=== PATIENT | male | born 1965 | race Caucasian/White ===

== ENCOUNTER → 2017-10-03 12:12 | Outpatient (CLI) | payer MEDICARE, MEDICAID, SELFPAY ==
--- NOTE | 2017-10-03 12:20 | RAD_ITS ---
STUDY: X-RAY - NASAL BONES REASON FOR EXAM: Male, 52 years old. Difficulty with nasal breathing. History of prior nasal fracture. TECHNIQUE: AP and lateral view(s) of the nasal bones. COMPARISON: None. FINDINGS: Normal nasal bones. Normal anterior nasal spine. There is no demonstrated soft tissue swelling. The remaining visualized osseous structures are normal. Normal visualized paranasal sinuses. RAD/Nasal Bones min 3 Views IMPRESSION: Normal x-ray examination of the nasal bones. Electronically Signed: Will Jean MD at 12:38 EST Tel [phone], Service support ,
== END ==
PROVIDERS: Family Provider Family Medicine; PCP Family Medicine; Visit Provider Family Medicine
DX: M95.0 Acquired deformity of nose (principal)
CPT/HCPCS: 70160

== ENCOUNTER 2017-10-12 10:34 | Emergency (ER) | payer MEDICARE, MEDICAID, SELFPAY ==
[2017-10-12 10:34] VITALS: BP 103/71; PULSE 86; RESP 17; TEMP 36.9; O2SAT 96; BMI 19.8
--- NOTE | 2017-10-12 10:53 | ED.VISSUMM ---
- ER Visit Summary Date of Service: 10/12/17 Chief Complaint: [Nausea vomiting] History of Present Illness: The patient is a 52 M [who presents the emergency department with 5 weeks of nausea and vomiting. He states that it varies but is proximally 1-2 episodes a day. He states that he has diarrhea when he vomits but not otherwise. He denies cough fever chills or sweats. Triage note is positive for all of these things so I did discuss this discrepancy with him and he states well he had flu symptoms about 3 or 4 weeks ago but those are better. He denies any abdominal pain. He states that he has never had this problem in the past however the review of his records show a history of inflammatory bowel disease. Patient says he knows nothing about this. I did ask him if he had ever been on Lialda which is listed as 1 of his medications and initially he said no but then when I asked him again later on in the interview he said a long time ago. He does have HIV and is on stribild should try build and follows up with an infectious disease doctor in [place]. He had a CD4 count of 547 and an undetectable viral load 2 weeks ago. He has not started on any new medications.] Physical Examination: [] Cachectic unkempt male in no acute distress Cobblestoning of the posterior oropharyngeal mucosa with no erythema or exudate Regular rate and rhythm no murmurs clear To auscultation bilaterally abdomen scaphoid and nontender there are normal bowel sounds and no masses He has mild tenting of the skin peripherally Peripheral pulses scabbed punctate lesions on the upper extremities with no evidence of infection Alert and oriented ?3, facial twitch, no focal neurologic deficits Test Results: [] Emergency Department Course and Treatment: [screening labs consistent with mild hypokalemia and thrombocytopenia. Patient was given fluids. This time I do think he is safe for discharge he was given precautions for which to return. I did encourage him to provide a stool sample. We were unable to obtain this in the emergency department.] Treatment Plan: [] Disposition: [Discharge] Impression: [vomiting] This note was generated with [employer] dictation software. It may contain incorrect words, spelling, and punctuation that were not noted in review of the chart prior to signing ED Disposition - Plan for ED Patient: Disposition: Home or Assisted Living Chief Complaint: General Illness Referrals: Adama Oconnor MD [Primary Care Provider] -
[2017-10-12 11:05] LABS: Absolute Lymphocyte Count 1.23 X10^3/ul (0.83-4.51); Absolute Neutrophil Count 3.4 X10^3/uL (2.0-7.7); Basophil# 0.01 X10^3/uL; Basophil% 0.2 % (0-1); Eosinophil# 0.03 X10^3/uL; Eosinophils% 0.6 % (0-5); Hematocrit 45.6 % (40-54); Hemoglobin 15.6 g/dl (13.0-16.5); Lymphocyte # 1.23 X10^3/ul (4.0); Lymphocyte % 24.4 % (19-41); Mean Corp Hgb Conc 34.2 g/gl (32-36); Mean Corpuscular Hgb 31.9 pg (27.0-32.0); Mean Corpuscular Volume 93.3 fL (80-94); Mean Platelet Vol. 11.7 fl (6.2-12.0); Monocyte# 0.39 X10^3/uL; Monocyte% 7.7 % (0-10); Neutrophil # 3.37 X10^3/uL (2.7-7.7); Neutrophil % 66.9 % (47-70); Platelet Count 147 K/mm3 (150-450); RBC Distribution Width CV 12.5 % (11.6-14.6); RBC Distribution Width SD 42.6 fl (35.1-43.9); Red Blood Count 4.89 M/mm3 (4.6-6.2)
[2017-10-12 11:06] LABS: POSITIVE COUNT NO; POSITIVE DIFFERENTIAL NO; POSITIVE MORPHOLOGY NO
[2017-10-12 11:20] LABS: ALB/GLOB Ratio 1.3 RATIO (0.9-2.4); AST(SGOT) 25 U/L (15-37); Alanine Aminotransfer ALT/SGPT 31 U/L (16-61); Albumin, Serum 3.8 g/dL (3.2-5.0); Alkaline Phosphatase 136 U/L (45-117); Anion Gap 4 (5-15); BUN 5 mg/dL (7-18); BUN/Creat Ratio 4.6 RATIO (10-20); Calcium,Total 8.7 mg/dL (8.5-10.1); Chloride 102 mmol/L (98-107); Creatinine, Serum 1.09 mg/dL (0.70-1.30); EST Glomerular Filtration Rate 76 mL/min (>60); Est Glom Filt Rate - Afr Amer 92 mL/min (>60); Estimated Creatinine Clearance 61.47 ml/min; Glucose 98 mg/dL (74-106); Lipase 56 U/L (73-393); Potassium 3.3 mmol/L (3.5-5.1); Protein, Total 6.8 g/dL (6.4-8.2); Sodium Level 139 mmol/L (136-145)
[2017-10-12] MEDS: 0.9% Normal Saline 1,000 ML 999 ML IV (11:30)
== END 2017-10-12 12:35 | disposition home or self-care (01) ==
LOC: ED 11:02
PROVIDERS: Emergency Provider Emergency Medicine; Family Provider Family Medicine; PCP Family Medicine
DX: R11.2 Nausea with vomiting, unspecified (principal); B20 Human immunodeficiency virus [HIV] disease; K21.9 Gastro-esophageal reflux disease without esophagitis; E78.00 Pure hypercholesterolemia, unspecified; Z79.899 Other long term (current) drug therapy
CPT/HCPCS: 80053; 83690; 85025; 87804; 96361; 96374; 99283; J7030; A4216

== ENCOUNTER → 2017-10-15 07:40 | Outpatient (CLI) | payer MEDICARE, MEDICAID, SELFPAY ==
--- NOTE | 2017-10-15 07:59 | CT_ITS ---
STUDY: CT ABDOMEN AND PELVIS WITH CONTRAST REASON FOR EXAM: Male, 52 years old. Lower abdominal pain with vomiting and diarrhea RADIATION DOSAGE (If Supplied By Facility): CTDIvol = ( 9.11 ) mGy, DLP = ( 228.94 ) mGycm TECHNIQUE: Transaxial images were obtained from the dome of the diaphragm to the symphysis pubis without oral contrast. 100mL ml of Isovue 300 contrast was administered. Sagittal and coronal images were reconstructed. Individualized dose optimization techniques were used for this CT. COMPARISON: June 19, 2016 FINDINGS: The visualized lung bases are unremarkable. The visualized portions of the heart are within normal limits. Normal liver. Normal gallbladder and extrahepatic biliary system. Normal spleen. Normal pancreas. Normal bilateral adrenal glands. Normal right kidney. Normal left kidney. Normal visualized stomach. No evidence for small bowel obstruction. There is narrowing and thick-walled appearance of the distal terminal ileum. There is an a haustral appearance to the splenic flexure and descending colon demonstrating mild diffuse submucosal thickening consistent with nonspecific inflammatory bowel disease without stranding in the fat at this time consistent with subacute to chronic inflammatory bowel disease.. No evidence for acute appendicitis Normal abdominal aorta. Normal inferior vena cava. Normal retroperitoneum. Normal urinary bladder. Normal abdominal wall. Normal osseous structures. CT/Abdomen/Pelvis WITH Contrast IMPRESSION: Findings consistent with nonspecific inflammatory bowel disease involving predominantly the splenic flexure and descending colon consistent with nonspecific colitis however there is suggestion of involvement of the terminal ileum raising question of Crohn's disease. Clinical correlation recommended. Electronically Signed: Wilver Barger MD at 21:24 EST , Service support ,
== END ==
PROVIDERS: Family Provider Family Medicine; PCP Family Medicine; Visit Provider Family Medicine
DX: R11.10 Vomiting, unspecified (principal); R10.9 Unspecified abdominal pain
CPT/HCPCS: 74177; Q9967

== ENCOUNTER 2017-10-18 10:06 | Emergency (ER) | payer MEDICARE, MEDICAID, SELFPAY ==
[2017-10-18 10:07] VITALS: BP 136/94; PULSE 90; RESP 18; TEMP 36.4; O2SAT 98; BMI 20.5
[2017-10-18] MEDS: Ondansetron 4 MG/2 ML Vial IV (10:34)
[2017-10-18 10:37] LABS: Absolute Lymphocyte Count 1.57 X10^3/ul (0.83-4.51); Absolute Neutrophil Count 8.6 X10^3/uL (2.0-7.7); Hemoglobin 16.1 g/dl (13.0-16.5); Lymphocyte # 1.57 X10^3/ul (4.0); Lymphocyte % 14.1 % (19-41); Mean Corpuscular Hgb 31.8 pg (27.0-32.0); Mean Corpuscular Volume 90.7 fL (80-94); Mean Platelet Vol. 12.1 fl (6.2-12.0); Monocyte# 0.94 X10^3/uL; Monocyte% 8.4 % (0-10); Neutrophil # 8.64 X10^3/uL (2.7-7.7); Neutrophil % 77.3 % (47-70); POSITIVE COUNT NO; POSITIVE DIFFERENTIAL NO; POSITIVE MORPHOLOGY NO; Platelet Count 156 K/mm3 (150-450); RBC Distribution Width CV 12.1 % (11.6-14.6); RBC Distribution Width SD 39.6 fl (35.1-43.9); Red Blood Count 5.07 M/mm3 (4.6-6.2); White Blood Count 11.2 K/mm3 (4.4-11.0)
--- NOTE | 2017-10-18 10:37 | ED.DCSUM_ITS ---
- ER Visit Summary Date of Service: 10/18/17 Chief Complaint: Diarrhea History of Present Illness: The patient is a 52 M presents with abdominal pain and diarrhea. Patient is demanding a colonoscopy today. He states he has an appointment with Dr. Brennan on October 31. He states he is unable to wait until his appointment for a colonoscopy. He has had intermittent diarrhea for the past 6 weeks. He denies any blood in his stool. Denies recent travel or antibiotics. He had a CT scan performed ordered by his primary care physician on Friday. He was put on prednisone yesterday for CT findings of inflammation. He denies fever. He has had intermittent episodes of vomiting and diarrhea. He has a history of hypercholesterolemia and HIV. He states recent viral load was undetectable. Physical Examination: Vitals are stable. Patient is afebrile. Alert no acute distress. HEENT exam is unremarkable. Neck is supple. Lungs are clear and equal bilaterally. Heart is regular rate and rhythm. Abdomen is soft mild diffuse tenderness, no rebound or guarding. Extremities are unremarkable. Skin is warm and dry. No focal neurologic deficit. Remainder of exam is unremarkable. Emergency Department Course and Treatment: Patient was given morphine and zofran IV. CBC is a white count 11.2. Chemistries unremarkable other than potassium 3.1. Lipase is normal. He was given potassium oral replacement. CT abdomen pelvis 10/15/17 shows findings consistent with nonspecific inflammatory bowel disease involving predominantly the splenic flexure and descending colon consistent with nonspecific colitis however there is suggestion of involvement of the terminal ileum raising question of Crohn's disease. On reevaluation, patient is resting comfortably. He started prednisone yesterday. He is advised to continue this medication. He has an appointment with GI coming up. He is advised to keep this appointment. Advised return ED if worsening complaints. Disposition: Discharge home Impression: Abdominal pain, diarrhea This note was generated with [employer] dictation software. It may contain incorrect words, spelling, and punctuation that were not noted in review of the chart prior to signing ED Disposition - Plan for ED Patient: Chief Complaint: Abd Pain Referrals: Adama Oconnor MD [Primary Care Provider] -
[2017-10-18 10:56] LABS: ALB/GLOB Ratio 1.4 RATIO (0.9-2.4); AST(SGOT) 22 U/L (15-37); Alanine Aminotransfer ALT/SGPT 36 U/L (16-61); Albumin, Serum 4.2 g/dL (3.2-5.0); Alkaline Phosphatase 132 U/L (45-117); Anion Gap 6 (5-15); BUN 6 mg/dL (7-18); BUN/Creat Ratio 5.9 RATIO (10-20); Calcium,Total 9.4 mg/dL (8.5-10.1); Chloride 99 mmol/L (98-107); Creatinine, Serum 1.02 mg/dL (0.70-1.30); EST Glomerular Filtration Rate 82 mL/min (>60); Est Glom Filt Rate - Afr Amer 99 mL/min (>60); Estimated Creatinine Clearance 65.96 ml/min; Globulin 2.9 g/dL (2.2-4.2); Glucose 112 mg/dL (74-106); Lipase 77 U/L (73-393); Potassium 3.1 mmol/L (3.5-5.1); Protein, Total 7.1 g/dL (6.4-8.2); Sodium Level 137 mmol/L (136-145)
--- NOTE | 2017-10-18 11:19 | ED.DEP ---
ED Disposition - Plan for ED Patient: Chief Complaint: Abd Pain Instructions: ED Abdominal Pain Unkn Cause Referrals: Adama Oconnor MD [Primary Care Provider] - Sudeep Brennan MD [STAFF PHYSICIAN] -
== END 2017-10-18 11:37 | disposition home or self-care (01) ==
LOC: ED 10:34
PROVIDERS: Emergency Provider Emergency Medicine; Family Provider Family Medicine; PCP Family Medicine
DX: R10.84 Generalized abdominal pain (principal); R19.7 Diarrhea, unspecified; E78.00 Pure hypercholesterolemia, unspecified; B20 Human immunodeficiency virus [HIV] disease; Z72.0 Tobacco use; Z79.899 Other long term (current) drug therapy
CPT/HCPCS: 80053; 83690; 85025; 96374; 96375; 99283; A4216; J2405

== ENCOUNTER 2017-10-26 16:24 | Emergency (ER) | payer MEDICARE, MEDICAID, SELFPAY ==
[2017-10-26 16:26] VITALS: BP 140/81; PULSE 83; RESP 16; TEMP 36.4; O2SAT 98; BMI 21.4
--- NOTE | 2017-10-26 17:01 | RAD_ITS ---
STUDY: X-RAY - ABDOMEN/PELVIS REASON FOR EXAM: Male, 52 years old. Constipation x1 week TECHNIQUE: Single AP view of the abdomen / pelvis. COMPARISON: None. FINDINGS: Normal visualized lung bases. There is an abundance of fecal material throughout the colon. There is no demonstrated free abdominal air. The visualized liver, spleen and kidneys are grossly normal in size and morphology. Normal soft tissue structures. Normal visualized osseous structures. RAD/Abdomen Single View (Portable) IMPRESSION: Abundant fecal retention throughout the colon Electronically Signed: Branden Pace DO at 17:31 EST Tel , Service support ,
--- NOTE | 2017-10-26 17:06 | ED.VISSUMM ---
- ER Visit Summary Date of Service: 10/26/17 Chief Complaint: Constipation History of Present Illness: The patient is a 52 M history of HIV positive. No prior abdominal surgeries. He has had multiple recent ER visits including a CAT scan showing colitis without a specific cause. He has follow-up at [facility] this week. Basically states he has not had a good bowel movement for a week. Currently he is not vomiting. He denies any fever. He only has mild intermittent cramping. He denies any dysuria. Currently is pain-free. He denies any melena. Physical Examination: Middle-aged male no acute distress. Vital signs are stable afebrile. HEENT exam unremarkable. Neck nontender no lymphadenopathy. Lungs clear to auscultation bilaterally. Heart regular rate and rhythm no murmur. Abdomen is soft and nontender. Nondistended. Normal bowel sounds. No hernias or masses. No appreciate organomegaly. Nondistended. Absolutely no abdominal tenderness. He is moving all 4 extremities. The neurovascular intact. Back is nontender. Neurologic exam is unremarkable. Test Results: KUB consistent with constipation. No signs of obstruction. No air-fluid levels. No dilated bowel. Emergency Department Course and Treatment: Repeat exam at 725 patient doing well. I went over the x-ray with he and his mother. He will be discharged home with magnesium citrate. Treatment Plan: To treat p.o. Increase water and fruits and vegetables and fiber. Disposition: Discharge Impression: Acute constipation History of HIV positive This note was generated with [employer] dictation software. It may contain incorrect words, spelling, and punctuation that were not noted in review of the chart prior to signing ED Disposition - Plan for ED Patient: Chief Complaint: Constipation Referrals: Adama Oconnor MD [Primary Care Provider] -
--- NOTE | 2017-10-26 17:27 | ED.DEP ---
ED Disposition - Plan for ED Patient: Disposition: Home or Assisted Living Chief Complaint: Constipation Instructions: ED Constipation Referrals: Adama Oconnor MD [Primary Care Provider] - 3-5 Days if not improving Additional Instructions: Use magnesium citrate for constipation. Also increase your fluid intake along with granola, fruits and vegetables and fiber. Follow-up with GI with your previously scheduled appointment this week.
[2017-10-26] MEDS: Magnesium Citrate 300 ML PO (17:39)
[2017-10-26 17:42] VITALS: BP 131/80; PULSE 81; RESP 16; O2SAT 100
== END 2017-10-26 17:45 | disposition home or self-care (01) ==
LOC: ED 17:33
PROVIDERS: Emergency Provider Emergency Medicine; Family Provider Family Medicine; PCP Family Medicine
DX: K59.00 Constipation, unspecified (principal); B20 Human immunodeficiency virus [HIV] disease; I25.10 Atherosclerotic heart disease of native coronary artery without angina pectoris; I25.2 Old myocardial infarction; Z72.0 Tobacco use; Z79.899 Other long term (current) drug therapy
CPT/HCPCS: 74018; 99283

== ENCOUNTER → 2019-01-13 | Outpatient (CLI) | payer MEDICARE, MEDICAID, SELFPAY ==
[2019-01-13 13:38] LABS: Absolute Lymphocyte Count 1.77 X10^3/ul (0.83-4.51); Absolute Neutrophil Count 2.8 X10^3/uL (2.0-7.7); Basophil# 0.02 X10^3/uL; Basophil% 0.4 % (0-1); Eosinophil# 0.05 X10^3/uL; Hematocrit 47.6 % (40-54); Hemoglobin 16.5 g/dl (13.0-16.5); Lymphocyte # 1.77 X10^3/ul (4.0); Lymphocyte % 36.4 % (19-41); Mean Corp Hgb Conc 34.7 g/gl (32-36); Mean Corpuscular Hgb 31.9 pg (27.0-32.0); Mean Corpuscular Volume 92.1 fL (80-94); Mean Platelet Vol. 11.6 fl (6.2-12.0); Monocyte# 0.24 X10^3/uL; Monocyte% 4.9 % (0-10); Neutrophil # 2.78 X10^3/uL (2.7-7.7); Neutrophil % 57.3 % (47-70); Platelet Count 155 K/mm3 (150-450); RBC Distribution Width CV 12.4 % (11.6-14.6); Red Blood Count 5.17 M/mm3 (4.6-6.2); White Blood Count 4.9 K/mm3 (4.4-11.0)
[2019-01-13 13:42] LABS: POSITIVE COUNT NO; POSITIVE DIFFERENTIAL NO; POSITIVE MORPHOLOGY NO
[2019-01-13 14:05] LABS: ALB/GLOB Ratio 1.4 RATIO (0.9-2.4); AST(SGOT) 22 U/L (15-37); Alanine Aminotransfer ALT/SGPT 22 U/L (16-61); Albumin, Serum 4.1 g/dL (3.2-5.0); Alkaline Phosphatase 116 U/L (45-117); Anion Gap 3 (5-15); BUN 8 mg/dL (7-18); BUN/Creat Ratio 6.7 RATIO (10-20); Chloride 103 mmol/L (98-107); EST Glomerular Filtration Rate 67 mL/min (>60); Est Glom Filt Rate - Afr Amer 82 mL/min (>60); Glucose 132 mg/dL (74-106); Potassium 3.4 mmol/L (3.5-5.1); Protein, Total 7.1 g/dL (6.4-8.2); Sodium Level 137 mmol/L (136-145)
[2019-01-14 12:07] LABS: Absolute CD4 Helper 541 /uL (359-1519); Basophils (Absolute) 0 x10E3/uL (0.0-0.2); Eosinophils 2 % (Not Estab.); Eosinophils (Absolute) 0.1 x10E3/uL (0.0-0.4); Hematocrit 48.6 % (37.5-51.0); Hemoglobin 16.6 g/dL (13.0-17.7); Immature Granulocytes 0 % (Not Estab.); Lymphs 34 % (Not Estab.); Lymphs (Absolute) 1.6 x10E3/uL (0.7-3.1); MCH 32.2 pg (26.6-33.0); MCHC 34.2 g/dL (31.5-35.7); MCV 94 fL (79-97); Monocytes 7 % (Not Estab.); Monocytes (Absolute) 0.3 x10E3/uL (0.1-0.9); Neutrophils 56 % (Not Estab.); Neutrophils (Absolute) 2.6 x10E3/uL (1.4-7.0); Percent % CD4 Pos. Lymph. 33.8 % (30.8-58.5); RBC Count 5.16 x10E6/uL (4.14-5.80); WBC Count 4.7 x10E3/uL (3.4-10.8)
[2019-01-14 15:19] LABS: Immature Granulocytes Absolute 0 x10E3/uL (0.0-0.1); Platelets 177 x10E3/uL (150-450)
[2019-01-15 15:50] LABS: HIV-1 RNA by PCR, Quant. < 20 copies/mL (.)
== END | disposition home or self-care (01) ==
PROVIDERS: Family Provider Family Medicine
DX: B20 Human immunodeficiency virus [HIV] disease (principal)
CPT/HCPCS: 36415; 80053; 85025; 86361; 87536

== ENCOUNTER 2019-02-02 12:15 | Emergency (ER) | payer MEDICARE, MEDICAID, SELFPAY ==
[2019-02-02 12:15] VITALS: BP 126/79; PULSE 89; RESP 18; TEMP 36.6; O2SAT 99; BMI 21.9
--- NOTE | 2019-02-02 12:29 | RAD_ITS ---
STUDY: X-RAY - ACUTE ABDOMINAL SERIES REASON FOR EXAM: Male, 53 years old. Abdominal pain TECHNIQUE: Single view of the chest. Supine, and erect view(s) of the abdomen were obtained. COMPARISON: 03/01/2016 FINDINGS: The lungs are clear and expanded. Normal size heart. Normal mediastinum and katina. Normal visualized pulmonary arteries. Normal visualized aortic arch and descending thoracic aorta. There is a non-specific bowel gas pattern. The soft tissue structures of the abdomen and pelvis are unremarkable. Normal visualized osseous structures. RAD/Acute Abdomen Inc Chest IMPRESSION: Normal x-ray examination of the chest, abdomen, and pelvis. Electronically Signed: Bobby Rowell MD at 13:39 EDT Tel , Service support ,
--- NOTE | 2019-02-02 12:33 | ED.DCSUM_ITS ---
History of Present Illness Chief Complaint: Abd Pain Informant: Patient Onset: Days - Onset 3 days ago Context: - - Was not sudden Timing: Intermittent Quality: Crampy Location: Right and left lower quadrant Current Severity: Mild Maximum Severity: Moderate Worsened by: Nothing Relieved by: Nothing Associated Symptoms: No GI or symptoms Narrative: Patient is a middle-age male who has HIV and CD4 count greater than 500 who went to urgent care and referred to ER because unable to obtain images. He reports onset of bilateral lower quadrant abdominal pain 3 days ago that has been intermittent and waxing waning in nature. The pain is crampy in nature. There is no nausea, vomiting or diarrhea. He denies constipation. He has flagellated. No dysuria, frequency, urgency or hematuria. No black, maroon- colored stool or blood in stool. He has had this in the past. When associated with diarrhea diagnosed with colitis. He presently denies diarrhea. Prior similar symptoms: Yes Recent Illness/Hospitalization: No Past Medical History - Allergies and Home Meds Allergies/Adverse Reactions: Allergies quetiapine fumarate [From Seroquel] Adverse Reaction (Verified 10/22/17 09:36) ERECTION THAT LASTS LONGER THAN 4 HOURS Primary Care Physician: Care Physician,No Primary [Primary Care Provider] - Prior records reviewed: Yes Lives: Alone Smoking Status: Current every day smoker Alcohol: None Drugs: None Review of Systems General: Denies: Chills, Fever, Sweats Eyes: Denies: Visual changes - bilaterally, Blurred Vision - bilaterally, Diplopia ENT: Denies: Rhinorrhea, Sore throat Cardiovascular: Denies: Chest pain, Palpitations Respiratory: Denies: Dyspnea, Cough, Dyspnea on exertion Gastrointestinal: Reports: Abdominal pain. Denies: Nausea, Vomiting, Diarrhea, Constipation, Melena, Hematochezia Genitourinary: Denies: Dysuria, Hematuria, Frequency Musculoskeletal: Denies: Back pain, Extremity Pain Skin: Denies: Rash, Wounds Neurological: Denies: Headache, Weakness, Numbness Hematologic: Denies: Easy bruising, Easy bleeding Allergy: Denies: Uticaria, Swelling of the mouth Physical Exam Vital Signs/Narrative: Vital Signs Temp Pulse Resp BP Pulse Ox 02/02/19 12:15 98 F 89 18 126/79 H 99 Inital Vital Signs reviewed: Yes General: Well nourished, Well developed, No Acute Distress Head: Normocephalic, Atraumatic Eyes: Perrl, EOMI ENT: Moist mucous membranes, No rhinorrhea Neck: Supple, Nontender Cardiovascular: Regular rate, Regular rhythm, No murmurs Respiratory: No distress, CTA bilaterally, Chest nontender Abdomen: Soft, Nontender, Nondistended, Normal bowel sounds, No masses, - - Diminished tympanitic to percussion. There is no evidence of umbilical or inguinal hernia. Rectal: Deferred Back: Nontender, Normal Inspection. Negative for: CVA tenderness Extremities: Nontender, No edema Skin: Normal color, No rash Neurological: Alert, Oriented x3, Cranial nerves II-XII grossly intact, Normal Strength, Normal Sensation, Normal DTR Psychological: Depressed Diagnostic/Tx/Re-eval Chest X-Ray - ED: Read by ED Physician, - - Three-view x-ray of the abdomen reveals normal chest portion. The amount of fecal stasis and onset of gas pattern noted on abdominal portion. Is no evidence of obstruction. Impressions Acute Abdomen Series 02/02/19 12:29 IMPRESSION: Normal x-ray examination of the chest, abdomen, and pelvis. Electronically Signed: Bobby Rowell MD at 13:39 EDT Tel , Service support , 02/02/19 12:29 Acute Abdomen Inc Chest [RAD] Stat Laboratory Results 02/02/19 02/02/19 12:54 12:54 WBC 5.4 RBC 5.50 Hgb 17.5 H Hct 50.1 MCV 91.1 MCH 31.8 MCHC 34.9 RDW 12.6 RDW Differential 41.8 Plt Count 160 MPV 11.6 Immature Gran % (Auto) 0.200 Neut % (Auto) 57.7 Lymph % (Auto) 31.3 [place] % (Auto) 9.5 Eos % (Auto) 0.9 Baso % (Auto) 0.4 Absolute Neuts (auto) 3.1 Absolute Lymphs (auto) 1.68 Total Counted Not Reportable Sodium 137 Potassium 3.6 Chloride 103 Carbon Dioxide 32.0 Anion Gap 2 L BUN 8 Creatinine 1.14 Estim Creat Clear Calc 62.25 Est GFR (MDRD) Af Amer 86 Est GFR (MDRD) Non-Af 71 BUN/Creatinine Ratio 7.0 L Glucose 73 L Calcium 9.2 - Medical Decision Making Since abdomen is distended tympanitic and he reports pain will obtain x-ray of his abdomen. In light of his past medical history blood work was obtained as well. Clinically he does not appear dehydrated. Since he is describing the pain is crampy Bentyl was ordered. Will reevaluate after images have been performed and laboratory results are available for review. If nurse informed that he was going to sign out AGAINST MEDICAL ADVICE. I informed the nurse that he cannot sign out AGAINST MEDICAL ADVICE unless I speak to them. I informed her that my plan is to discharge him since his work-up was negative. He left prior to receiving his discharge paperwork. ED Disposition - Plan for ED Patient: Disposition: Home or Assisted Living Diagnosis: Acute bilateral lower abdominal pain, Constipation, HIV antibody positive Instructions: ED Constipation Referrals: Care Physician,No Primary [Primary Care Provider] -
[2019-02-02] MEDS: Dicyclomine 10 MG Capsule 20 MG PO (12:48)
[2019-02-02 13:06] LABS: Absolute Lymphocyte Count 1.68 X10^3/ul (0.83-4.51); Absolute Neutrophil Count 3.1 X10^3/uL (2.0-7.7); Basophil# 0.02 X10^3/uL; Basophil% 0.4 % (0-1); Eosinophil# 0.05 X10^3/uL; Eosinophils% 0.9 % (0-5); Hematocrit 50.1 % (40-54); Hemoglobin 17.5 g/dl (13.0-16.5); Lymphocyte # 1.68 X10^3/ul (4.0); Lymphocyte % 31.3 % (19-41); Mean Corp Hgb Conc 34.9 g/gl (32-36); Mean Corpuscular Hgb 31.8 pg (27.0-32.0); Mean Corpuscular Volume 91.1 fL (80-94); Mean Platelet Vol. 11.6 fl (6.2-12.0); Monocyte# 0.51 X10^3/uL; Monocyte% 9.5 % (0-10); Neutrophil % 57.7 % (47-70); Platelet Count 160 K/mm3 (150-450); RBC Distribution Width CV 12.6 % (11.6-14.6); RBC Distribution Width SD 41.8 fl (35.1-43.9); White Blood Count 5.4 K/mm3 (4.4-11.0)
[2019-02-02 13:09] LABS: POSITIVE COUNT NO; POSITIVE DIFFERENTIAL NO; POSITIVE MORPHOLOGY NO
[2019-02-02 13:16] LABS: Anion Gap 2 (5-15); BUN 8 mg/dL (7-18); Calcium,Total 9.2 mg/dL (8.5-10.1); Chloride 103 mmol/L (98-107); Creatinine, Serum 1.14 mg/dL (0.70-1.30); EST Glomerular Filtration Rate 71 mL/min (>60); Est Glom Filt Rate - Afr Amer 86 mL/min (>60); Estimated Creatinine Clearance 62.25 ml/min; Glucose 73 mg/dL (74-106); Potassium 3.6 mmol/L (3.5-5.1); Sodium Level 137 mmol/L (136-145)
--- NOTE | 2019-02-02 14:40 | ED.RN ---
patient demanded to see ER doctor because he stated he was tired of waiting for results. This RN explained that physician would see patient as soon as possible. Patient demanded to have his IV removed and told RN that he was leaving. RN asked to speak to physician before he leaves. This RN spoke to ed physician who refused to sign AMA paperwork stating that he needed to see patient before he leaves and that his test work was negative. This RN explained to patient that he could leave as we are unable to force him to stay, but he would be unable to receive test results. Patient then left after yelling at nurse.
== END 2019-02-02 15:30 | disposition home or self-care (01) ==
LOC: ED 12:47
PROVIDERS: Emergency Provider Emergency Medicine
DX: R10.32 Left lower quadrant pain (principal); R10.31 Right lower quadrant pain; B20 Human immunodeficiency virus [HIV] disease; F17.200 Nicotine dependence, unspecified, uncomplicated
CPT/HCPCS: 74022; 80048; 85025; 99282

== ENCOUNTER → 2019-02-12 | Outpatient (CLI) | payer MEDICARE, MEDICAID, SELFPAY ==
[2019-02-02 12:15] VITALS: BMI 21.9
--- NOTE | 2019-02-12 09:55 | RAD_ITS ---
CLINICAL HISTORY: Male, 54 years old. PROCEDURE: CONSENT: SEDATION: FLUOROSCOPY TIME (if supplied): (2:51) minutes/seconds TECHNIQUE: (All elements of maximal sterile barrier technique followed, including US elements as applicable) __Patient swallowed barium without difficulty. No evidence of a hiatal hernia or gastroesophageal reflux identified. The stomach was then filled to the normal contour without mucosal abnormalities. The duodenal bulb is is mildly deformed. The duodenal sweep and proximal small bowel are unremarkable. Late abdominal film revealed contrast within the entire small bowel including the cecum and appear normal. RAD/Upper GI Series Only IMPRESSION: Mildly deformed duodenal bulb. Electronically Signed: Myah Coy, at 9:21 EDT Tel , Service support ,
== END | disposition home or self-care (01) ==
LOC: RAD 09:18
PROVIDERS: Referring Provider Nurse Practitioner Adult Health; Visit Provider Nurse Practitioner Adult Health
DX: R10.13 Epigastric pain (principal)
CPT/HCPCS: 74246

== ENCOUNTER 2019-02-13 14:25 | Emergency (ER) | payer MEDICARE, SELFPAY ==
[2019-02-13 14:26] VITALS: BP 129/86; PULSE 104; RESP 18; TEMP 36.4; O2SAT 96; BMI 21.7
--- NOTE | 2019-02-13 15:04 | NURSING ---
FAXED RELEASE OF INFO TO [facility] [phone]
[2019-02-13 15:14] LABS: Absolute Lymphocyte Count 1.95 X10^3/ul (0.83-4.51); Absolute Neutrophil Count 3.3 X10^3/uL (2.0-7.7); Basophil# 0.01 X10^3/uL; Basophil% 0.2 % (0-1); Eosinophil# 0.04 X10^3/uL; Eosinophils% 0.7 % (0-5); Hemoglobin 16.5 g/dl (13.0-16.5); Lymphocyte # 1.95 X10^3/ul (4.0); Lymphocyte % 33.4 % (19-41); Mean Corp Hgb Conc 35.9 g/gl (32-36); Mean Corpuscular Hgb 31.2 pg (27.0-32.0); Mean Platelet Vol. 11.7 fl (6.2-12.0); Monocyte% 8.6 % (0-10); Neutrophil # 3.33 X10^3/uL (2.7-7.7); Neutrophil % 56.9 % (47-70); Platelet Count 156 K/mm3 (150-450); RBC Distribution Width CV 12.1 % (11.6-14.6); RBC Distribution Width SD 38.6 fl (35.1-43.9); Red Blood Count 5.29 M/mm3 (4.6-6.2); White Blood Count 5.8 K/mm3 (4.4-11.0)
[2019-02-13] MEDS: Dicyclomine 10 MG Capsule 20 MG PO (15:14)
[2019-02-13 15:22] LABS: POSITIVE COUNT NO; POSITIVE DIFFERENTIAL NO; POSITIVE MORPHOLOGY NO
[2019-02-13 15:24] LABS: ALB/GLOB Ratio 1.4 RATIO (0.9-2.4); AST(SGOT) 18 U/L (15-37); Alanine Aminotransfer ALT/SGPT 20 U/L (16-61); Albumin, Serum 4.2 g/dL (3.2-5.0); Alkaline Phosphatase 112 U/L (45-117); Anion Gap 4 (5-15); BUN 6 mg/dL (7-18); BUN/Creat Ratio 5.2 RATIO (10-20); Chloride 102 mmol/L (98-107); Creatinine, Serum 1.15 mg/dL (0.70-1.30); EST Glomerular Filtration Rate 71 mL/min (>60); Est Glom Filt Rate - Afr Amer 86 mL/min (>60); Estimated Creatinine Clearance 60.34 ml/min; Globulin 2.9 g/dL (2.2-4.2); Glucose 119 mg/dL (74-106); Potassium 2.8 mmol/L (3.5-5.1); Protein, Total 7.1 g/dL (6.4-8.2); Sodium Level 137 mmol/L (136-145)
[2019-02-13 15:29] LABS: Bacteria 0 SEEN /hpf (None Seen); Mucous, Urine 0 SEEN /hpf (<or=2+); Squamous Epithelial Cells - UA 0 SEEN /hpf (0-5)
[2019-02-13 15:57] LABS: Color, Urine Yellow (Yellow); Glucose, Dipstick Normal (Normal); Ketone-Dipstick Negative (Negative); Leukocyte Esterase-Dipstick Negative /ul (Negative); Nitrite-Dipstick Negative (Negative); Occult Blood-Urine 10 /ul (Negative); Protein-Dipstick Negative (Negative); Urine Bilirubin Dipstick Negative (Negative); Urine Clarity Sl. Cloudy (Clear); Urine Urobilinogen 1 mg/dl (Normal)
--- NOTE | 2019-02-13 16:12 | ED.DCSUM_ITS ---
History of Present Illness Informant: Patient Onset: Month(s) Timing: Waxes and wanes Current Severity: Mild Maximum Severity: Mild Narrative: Patient has a history of chronic abdominal pain. He states it started he thinks in September. He has been seen in the ED and by his GI doctor. His last ED visit was in [place] 1 week ago. He has intermittent nausea and vomiting with intermittent abdominal pain. He is now complaining of urinary frequency without dysuria, he denies fever chills or hematemesis. He does complain of dark stools. He denies weight loss but admits to weight gain.h He had an upper GI series done yesterday. In review of medical records it was unremarkable other than a comment about a deformed duodenal bulb. weight loss but admits to weight gain. Medical records were obtained from [place]. He had a CT abdomen pelvis with IV contrast that showed no acute process. <Lorna Shoemaker - Last Filed: 02/13/19 16:39> <Joseph Walton - Last Filed: 02/13/19 16:45> Chief Complaint: Abd Pain Past Medical History Smoking Status: Current every day smoker <Lorna Shoemaker - Last Filed: 02/13/19 16:39> <Joseph Walton - Last Filed: 02/13/19 16:45> - Allergies and Home Meds Allergies/Adverse Reactions: Allergies quetiapine fumarate [From Seroquel] Adverse Reaction (Verified 02/13/19 14:29) ERECTION THAT LASTS LONGER THAN 4 HOURS Primary Care Physician: Care Physician,No Primary [Primary Care Provider] - Review of Systems General: Denies: Chills, Fever, Sweats Eyes: Denies: Visual changes - bilaterally, Diplopia ENT: Denies: Rhinorrhea, Sore throat Cardiovascular: Denies: Chest pain, Palpitations Respiratory: Denies: Dyspnea, Cough, Dyspnea on exertion Gastrointestinal: Reports: Abdominal pain, Nausea, Vomiting, Hematochezia. Denies: Diarrhea, Melena Genitourinary: Denies: Dysuria, Hematuria, Frequency Musculoskeletal: Denies: Back pain, Extremity Pain Skin: Denies: Rash, Wounds Neurological: Denies: Headache, Weakness, Numbness <Lorna Shoemaker - Last Filed: 02/13/19 16:39> Physical Exam Vital Signs/Narrative: Vital Signs Temp Pulse Resp BP Pulse Ox 02/13/19 14:26 97.6 F L 104 H 18 129/86 H 96 Inital Vital Signs reviewed: Yes General: Well nourished, Well developed, No Acute Distress Head: Normocephalic, Atraumatic Eyes: Perrl, EOMI ENT: Moist mucous membranes, No rhinorrhea Neck: Supple, Nontender Cardiovascular: Regular rate, Regular rhythm, No murmurs Respiratory: No distress, CTA bilaterally, Chest nontender Abdomen: Soft, Nontender, Nondistended, Normal bowel sounds Back: Nontender, Normal Inspection Extremities: Nontender, No edema Skin: Normal color, No rash Neurological: Alert, Oriented x3 Psychological: Normal affect, Normal Mood <Lorna Shoemaker - Last Filed: 02/13/19 16:39> Vital Signs/Narrative: Vital Signs Temp Pulse Resp BP Pulse Ox 02/13/19 16:37 76 16 108/61 95 02/13/19 14:26 97.6 F L 104 H 18 129/86 H 96 <Joseph Walton - Last Filed: 02/13/19 16:45> Diagnostic/Tx/Re-eval - Medical Decision Making Patient has been having abdominal pain for some time. His abdomen was soft and nondistended. He was complaining of diffuse tenderness without guarding or rebound tenderness. Records were obtained from [place] [address] of abdomen pelvis with IV contrast was unremarkable. Laboratory test today were unremarkable as well except for potassium of 2.8. He was prescribed K. Dur and instructed to follow-up with his GI doctor for possible endoscopy, colonoscopy. He is aware of his upper GI report. He remained nontoxic in appearance and hemodynamically stable. He was discharged in stable condition with a prescription for K-Dur. He will continue Prilosec which his GI doctor just increased the dose. He is agreeable to this discharge plan. Differential diagnosis: Peptic ulcer disease, colitis, GI bleed. Patient had no nausea vomiting or reports of hematemesis. Laboratory tests are unremarkable and he was afebrile nontoxic in appearance. He denies gross bleeding but complains of intermittent black stools. He was hemodynamically stable. Final impression: Chronic abdominal pain of uncertain etiology, hypokalemia <Lorna Shoemaker - Last Filed: 02/13/19 16:39> - Medical Decision Making Patient with chronic abdominal pain. He had an upper GI that showed a deformed duodenal bulb. Otherwise unremarkable. His work appears negative except for a potassium of 2.8. He will be given oral replacement for home. He will need to follow-up with the GI specialist. <Joseph Walton - Last Filed: 02/13/19 16:45> ED Disposition <Lorna Shoemaker - Last Filed: 02/13/19 16:39> <Joseph Walton - Last Filed: 02/13/19 16:45> - Plan for ED Patient: Disposition: Home or Assisted Living Diagnosis: Hypokalemia Instructions: ABDOMINAL PAIN, Unkown Cause, (Male) Prescriptions: Potassium Chloride [K-Dur] 20 meq PO BID 5 Days #10 tab Prescription Printed Referrals: Care Physician,No Primary [Primary Care Provider] -
[2019-02-13 16:21] LABS: Red Blood Cells-Urine 0-5 SEEN /hpf (0-5); White Blood Cells 0-5 SEEN /hpf (0-5)
[2019-02-13 16:37] VITALS: BP 108/61; PULSE 76; RESP 16; O2SAT 95
== END 2019-02-13 16:51 | disposition home or self-care (01) ==
PROVIDERS: Emergency Provider Nurse Practitioner
DX: G89.29 Other chronic pain (principal); R10.9 Unspecified abdominal pain; E87.6 Hypokalemia; F17.200 Nicotine dependence, unspecified, uncomplicated
CPT/HCPCS: 80053; 81001; 82274; 85025; 99284; J7040; A4216

== ENCOUNTER 2019-02-14 04:24 | Inpatient (IN) | payer MEDICARE, MEDICAID, SELFPAY ==
[2019-02-13 14:26] VITALS: BMI 21.7
[2019-02-14] VITALS (12 sets, daily range): BP systolic 96–123; BP diastolic 66–89; PULSE 74–89; RESP 14–23; TEMP 36.6–36.7; O2SAT 97–100; BMI 22.1; BMI 22.2
--- NOTE | 2019-02-14 04:33 | RAD_ITS ---
STUDY: X-RAY CHEST REASON FOR EXAM: Male, 54 years old. Chest pain. STEMI. TECHNIQUE: Single AP portable view of the chest. COMPARISON: 02/02/2019. FINDINGS: The lungs are clear and expanded. There is no demonstrated pleural abnormality. Normal size heart. Normal mediastinum and katina. Normal visualized pulmonary arteries. Normal visualized aortic arch and descending thoracic aorta. Normal visualized thoracic spine. Normal visualized ribs, clavicles, and shoulders. There is no demonstrated abnormality of the visualized soft tissue structures of the upper abdomen. RAD/Chest 1 View (Portable) IMPRESSION: Normal x-ray examination of the chest. Electronically Signed: Pankaj Krishna MD at 5:09 EDT , Service support ,
--- NOTE | 2019-02-14 04:33 | EKG12_ITS ---
Test Reason : CP Blood Pressure : / mmHG Vent. Rate : 083 BPM Atrial Rate : 083 BPM P-R Int : 130 ms QRS Dur : 090 ms QT Int : 398 ms P-R-T Axes : 010 038 -25 degrees QTc Int : 467 ms Normal sinus rhythm Cannot rule out Inferior infarct , new Anteroseptal infarct , possibly acute ACUTE MN / STEMI Abnormal ECG Confirmed by GLO DELA CRUZ ([id number]), design editor MATHEUS HARP ([id number]) on 02/17/2019 1:53:11 PM Referred By: Glo Dela Cruz Confirmed By:GLO DELA CRUZ
--- NOTE | 2019-02-14 04:37 | HP.PCM_ITS ---
Problem List (1) STEMI (ST elevation myocardial infarction) Status: Acute History of Present Illness Date of Admission: 02/14/19 Chief Complaint: CHEST PAIN The patient is a 54 year old M with a significant history of hypertension; COPD; and hyperlipidemia who presented to the emergency department with chest pain. Patient was a STEMI alert. His chest pain is across his entire precordium. His pain is sharp. He received aspirin and nitroglycerin by the paramedics. His pain resolved momentarily but it came back. Associated with his symptoms is nausea, vomiting and shortness of breath. He denies any aggravating or ameliorating factor. His pain started while at rest. His pain is nonradiating. His prehospital EKG showed ST elevation in leads I and aVL with reciprocal T wave inversions. At the hospital his EKG showed ST elevation in anterior leads. Of note, patient was seen at the ED a day before this presentation for abdominal pain and was found to have low potassium. Past Medical History Medical History: Medical History (Last Reviewed 02/14/19 @ 04:53 by Reggie Collins MD) Abdominal pain in male R10.9 BAHA cochlear implant bone infection T85.79XA Depression F32.9 Diarrhea R19.7 HIV (human immunodeficiency virus infection) B20 Hypercholesterolemia E78.00 HTN (hypertension) I10 Allergies quetiapine fumarate [From Seroquel] Adverse Reaction (Verified 02/14/19 04:34) ERECTION THAT LASTS LONGER THAN 4 HOURS Home Medications: Ambulatory Orders Medication Instructions Recorded Pravastatin [Pravachol] 40 mg PO DAILY 11/22/15 Gabapentin [Neurontin] 300 mg PO BIDCM PRN 06/13/16 Omeprazole [Prilosec] 20 mg PO DAILY 06/13/16 Potassium Chloride [K-Dur] 20 meq PO BID 5 Days #10 tab 02/13/19 Surgical History: Surgical History (Last Reviewed 02/14/19 @ 04:53 by Reggie Collins MD) H/O colonoscopy Z98.890 H/O eye surgery Z98.890 H/O toe surgery Z98.890 Smoking Status: Current every day smoker Review of Systems Constitutional: Denies: Chills, Fever, Weight Change HEENT: Denies: Head Aches, Sinus Congestion, Sinus Drainage Cardiovascular: Reports: Chest Pain Respiratory: Reports: Shortness of Breath Gastrointestinal: Reports: Nausea, Vomiting Genitourinary: Denies: Dysuria Musculoskeletal: Denies: Joint Pain, Joint Tenderness Skin: Denies: Rash, Wounds Neurological: Denies: Numbness, Tingling, Focal weakness Psychiatric: Denies: Homicidal Ideations, Suicidal Ideations Hematologic/ Lymphatic: Denies: Easy Bruising, Easy Bleeding VTE Information - Inpt Only VTE Present on Admission: No VTE Mechan Device Prophylaxis: None VTE Pharm Prophylaxis ordered?: No Reason prophylaxis not ordered:: Treatment Not Indicated - Patient received therapeutic dose of heparin for STEMI Patient Problems: Active and Suspected Problems (Last Reviewed 02/14/19 @ 04:53 by Reggie Collins MD) STEMI (ST elevation myocardial infarction) (Acute) - Physical Exam General: Alert, Oriented x3, Cooperative HEENT: Atraumatic, Normocephalic Neck: Supple, No JVD, Negative Carotid Bruits Lungs: Clear to auscultation, Normal air movement, Tachypneic, Using Accessory Muscles Cardiovascular: Regular rate, No murmurs Abdomen: Bowel Sounds Present, Soft, Non Tender Extremities: No edema, Capillary Refill Less than 3 Seconds Skin: No rashes, No breakdown Musculoskeletal: No Tenderness to Palpation of Joints or Extremities Neurological: Neuro grossly intact Psych/Mental Status: Anxious Vital Signs Temp Pulse Resp BP Pulse Ox 98.1 F 89 19 H 120/73 99 02/14/19 04:25 02/14/19 04:25 02/14/19 04:25 02/14/19 04:25 02/14/19 04:25 Oxygen Delivery Method Room Air Weight: 58.6 kg Body Mass Index (BMI) 22.1 Assessment/Plan All Active Problems (Last Reviewed 02/14/19 @ 04:53 by Reggie Collins MD) STEMI (ST elevation myocardial infarction) (Acute) The patient is a 54 year old M with a significant history of hypertension; and hyperlipidemia who presented to the emergency department with symptomatic ST elevation PR for which a STEMI alert was called. ST elevation PR Review of EKG confirms ST elevation Emergency orders placed by the emergency department doctor. Patient to be sent to the Ground Intelligence Officer. Patient received therapeutic dose of heparin per weight , Brilinta; morphine; aspirin and nitroglycerin at the ED. Of note emergency department nurse reported that patient vomited after he had received Brilinta. Tobacco abuse Consider counseling after patient has returned from [facility] [employer] [facility]. DVT Prophylaxis Not indicated at this time since patient has received therapeutic dose of heparin. Further management after patient has returned from [facility] [employer] [facility]. Code Visit Inpatient E&M: 11510 Init Hosp L3
[2019-02-14] MEDS: TICAGRELOR 90 MG TABLET 180 MG PO (04:38)
[2019-02-14] MEDS: Heparin Injection (Vial) 5,000 UNIT/ML VIAL 3520 UNIT IV (04:39)
--- NOTE | 2019-02-14 04:40 | ED.DCSUM_ITS ---
- ER Visit Summary Date of Service: 02/14/19 Chief Complaint: Chest pain History of Present Illness: The patient is a 54 M who presents with sudden onset severe chest pain that began about 20 minutes ago. He describes it as a tightness in the center of his chest. He has associated shortness of breath. EMS gave aspirin and nitroglycerin. He transiently had resolution of his symptoms. Multiple prehospital EKGs were sent which initially showed ST elevation in leads I and aVL nonspecific changes with T wave inversions and ST depression in the inferior leads. At this evolved he also developed ST depression in the precordial leads. He denies any history of coronary disease. He is a smoker with a history of high cholesterol and COPD. Physical Examination: Afebrile vitals normal Moist mucous membranes Heart regular rate and rhythm Lungs are clear The abdomen is soft and nontender Extremities are nontender without edema symmetric palpable radial pulses Alert Test Results: EKG shows ST elevations in leads I, aVL, V2 and V3 which are new from prior as well as deep ST depression and T wave inversions in the inferior leads, II, III, and aVF. Laboratory studies including troponin have been ordered Emergency Department Course and Treatment: STEMI team was activated based on prehospital EKGs. IV morphine and Zofran, IV heparin, sublingual nitroglycerin have been ordered. He already received aspirin. He was consented for emergent catheterization and angioplasty. I did not speak directly to the staining investor relations director but was advised that investor relations director is on his way in. Treatment Plan: [] Disposition: To School Speech Therapist Impression: Anterolateral STEMI This note was generated with Penboost dictation software. It may contain incorrect words, spelling, and punctuation that were not noted in review of the chart prior to signing ED Disposition - Plan for ED Patient: Referrals: Care Physician,No Primary [Primary Care Provider] -
[2019-02-14] MEDS: Nitroglycerin SL (ED/IMG/CATH) 0.4 MG TABLET SUBLINGUAL (04:41)
[2019-02-14] MEDS: Ondansetron 4 MG/2 ML Vial IV (04:41)
[2019-02-14 04:42] LABS: Absolute Lymphocyte Count 3.12 X10^3/ul (0.83-4.51); Absolute Neutrophil Count 2.8 X10^3/uL (2.0-7.7); Basophil# 0.02 X10^3/uL; Basophil% 0.3 % (0-1); Eosinophils% 1.5 % (0-5); Hematocrit 45.2 % (40-54); Lymphocyte # 3.12 X10^3/ul (4.0); Lymphocyte % 45.9 % (19-41); Mean Corp Hgb Conc 33.2 g/gl (32-36); Mean Corpuscular Hgb 29.4 pg (27.0-32.0); Mean Corpuscular Volume 88.5 fL (80-94); Mean Platelet Vol. 11.8 fl (6.2-12.0); Monocyte% 10.3 % (0-10); Neutrophil # 2.84 X10^3/uL (2.7-7.7); Neutrophil % 41.9 % (47-70); Platelet Count 169 K/mm3 (150-450); RBC Distribution Width CV 12.5 % (11.6-14.6); RBC Distribution Width SD 40.6 fl (35.1-43.9); Red Blood Count 5.11 M/mm3 (4.6-6.2); White Blood Count 6.8 K/mm3 (4.4-11.0)
[2019-02-14] MEDS: Morphine 4 MG/ML Syringe IV (04:42)
[2019-02-14 04:43] LABS: POSITIVE COUNT NO; POSITIVE DIFFERENTIAL NO; POSITIVE MORPHOLOGY NO
[2019-02-14 04:48] LABS: Partial Thromboplast Time 27.5 Seconds (24.1-36.2); Prothrombin Time (Protime)PT. 12.5 SECONDS (11.7-14.9)
[2019-02-14 04:56] LABS: Anion Gap 9 (5-15); BUN 8 mg/dL (7-18); BUN/Creat Ratio 7.2 RATIO (10-20); Calcium,Total 8.7 mg/dL (8.5-10.1); Chloride 105 mmol/L (98-107); Creatinine, Serum 1.11 mg/dL (0.70-1.30); EST Glomerular Filtration Rate 74 mL/min (>60); Est Glom Filt Rate - Afr Amer 89 mL/min (>60); Estimated Creatinine Clearance 63.79 ml/min; Glucose 116 mg/dL (74-106); Potassium 3.3 mmol/L (3.5-5.1); Sodium Level 143 mmol/L (136-145)
--- NOTE | 2019-02-14 06:02 | CL.I_ITS ---
Patient Name: KIMBERLY BRANHAM Study Date: 02/14/2019 Performing: Stas Lawrence MD Ht: 64.17 inches 163 cm : 1965 Wt: 130.07 lbs 59 kg Age: 54 Gender: male BSA: 1.63 PROCEDURE(S) PERFORMED OE97-TSC/COR/LV OU81-ZSF, LAVELL AND/OR PTCA, ARTERY OR GRAFT, SINGLE VESSEL CLINICAL PROFILE AND CO-MORBIDITIES Indications: ACS <= 24 hrs Heart Failure: None Stress/Imaging Stress/Image Study Performed: No CAD Presentations: STEMI. Symptom onset Date/Time: Time Not Available CONCLUSIONS Acute GA due to occlusion of LAD Single vessel CAD of the LAD Successful PTCA/LAVELL mid LAD Successful emergent PCI with Drug eluting stent and PTCA to the mid LAD RECOMMENDATIONS Referred for immediate PCI [facility]fin[facility] Bardales for at least 12 months DESCRIPTION OF PROCEDURE The patient arrived to the procedure lab. The risks and benefits of the procedure as well as a full d escription of our services here and lack of surgical backup were fully explained to the patient and/o r their significant other prior to the catheterization. The Timeout was completed, verifying the rome ect patient and procedure. The patient's procedural site was prepped and draped in the usual fashion. Local anesthetic was given subcutaneously to right radial region with Lidocaine 2%. Using a modified Seldinger technique, arterial access was obtained via the right radial artery, a 6Fr sheath was inse rted.. Left Coronary Artery selective angiography was performed in multiple views using a 6 Fr. JL3. 5. Left Ventriculography was performed in DIAZ projection using a 5 Fr. JR5. LV to AO pullback pressur es were then recorded. Right Coronary Artery selective angiography was then performed in multiple vie ws using a 5 Fr. JR 5 catheter JL 3.5 Guide catheter was inserted and engaged into the LCA. BMW Eugene Guide wire was advance d to the Runthrough Guide wire was advanced to the LAD. Emerge 2.0 x 12 Balloon catheter was inserted . Balloon catheter was advanced across lesion in the LAD, mid. PTCA balloon inflated at 8 atms for 42 secs. Angiogram performed post balloon dilatation. Resolute 2.5 x 8 Drug Eluting stent was inserted. Drug Eluting stent was advanced across the lesion in the LAD, mid. Angiogram performed pre stent dep loyment. Angiogram performed post stent deployment. The arterial sheath was pulled and a TR Band wa s applied for hemostasis CORONARY ANGIOGRAPHY DOMINANCE: Right Dominant LEFT HEART ASSESSMENT Left Ventricular Ejection Fraction: by LV Gram 35 % Depressed Left Ventricular systolic function Anterior Akinesis. Apical Akinesis LEFT MAIN: Angiographically normal LEFT ANTERIOR DESCENDING ARTERY: MID LAD: 90 % Stenosis RIGHT CORONARY ARTERY: Angiographically normal VALVE FINDINGS: No Mitral Insufficency INTERVENTION INFORMATION LESION SITE: LAD (Mid) Lesion Complexity: Non-High/Non-C, lesion at bifurcation: Yes, culprit lesion: Yes Pre-Stenosis - 90 % Pre Stenosis: 90 % Pre intervention FOZIA flow: 2 PROCEDURE: Drug Eluting Stent with pre and post dilatation Post Stenosis: 0 % Post intervention FOZIA flow: 3 Lesion Devices: Yusuf Sci .035 260cm str. Magic wire Driscoll .014 BMW Eugene Straight 190cm Medtronic 6 Fr JL3.5 100cm Guide Catheter Terumo .014 Runthrough Extra Floppy 180cm straight Yusuf Sci EMERGE MR 2.00x12 BALLOON Medtronic Resolute RX LAEVLL 2.5x18 COMPLICATIONS No Complications PROCEDURE MEDICATIONS Versed 1 mg IV Fentanyl 50 mcg IV Oxygen: 2 L/min via nasal cannula Brilinta 180 mg PO @ 02/14/2019 05:29:19 Heparin given IA 02/14/2019 05:16:10 Heparin 3000 unit(s) IV 02/14/2019 05:21:26 Verapamil 3mg, Ntg 300mcgs, 3000 units of Heparin given IA 02/14/2019 05:16:10 IV Bolus: .9 NaCl 600 ml total 02/14/2019 05:29:35 SUMMARY OF HEMODYNAMIC DATA Time AIR REST ECG 05:11:50 AO 101/68 (80) SA 05:22:28 LV 109/16, 25 05:39:28 LV 97/12, 23 05:39:34 LVp 112/17, 33 05:40:33 AOp 113/57 (84) 05:40:38 Signed By Stas Lawrence MD On 02/14/2019 6:01:46 AM Stas Lawrence MD
--- NOTE | 2019-02-14 06:09 | NURSING ---
Patient arrived from dairy laboratory technician to ICU [address] with [address] band in [address], no hematoma noted. Patient moving right arm and using it frequently.Patient educated that the right arm should not be used and to pretend that he does not have a right arm. Patient stated I am right handed and I am stubborn. I will use my right arm as much as I want to. Explained to patient that he had a puncture to his major artery in his right arm and using it can cause a hematoma and possible fatal complications. Patient states he wants his discharge paperwork and is stated I am leaving AMA and won't be here long. 2 other nurses attempted to educate patient and he continues to use his right arm and stating he is leaving AMA and will continue to use his right arm.
[2019-02-14 06:16] LABS: ACT Activated Clotting Time 362 sec (74-137)
--- NOTE | 2019-02-14 06:19 | PCM.CONS.C ---
Problem List (1) STEMI (ST elevation myocardial infarction) Status: Acute Qualifiers: Involved coronary artery: LAD coronary artery Qualified Code(s): I21.02 - ST elevation (STEMI) myocardial infarction involving left anterior descending coronary artery Reason for Consult Date of Consultation: 02/14/19 Reason for Consultation: STEMI History of Present Illness: The patient is a 54 year old male with history of tobacco abuse, COPD, hyperlipidemia, who presented to the hospital with sudden onset of retrosternal chest heaviness that started about an hour prior to his arrival to the emergency room. Initial ECG revealed subtle ST elevation in leads I and aVL with reciprocal changes in leads II, III and aVF. Subsequent EKGs revealed ST elevation in the anterior leads and code STEMI was activated. Emergent heart catheterization was performed, which found a 90% tubular lesion affecting the mid LAD. This was revascularized using a drug-eluting stent. The symptoms subsided and the patient did well during the procedure. His LV function showed an EF of 35%. The day before he presented to our emergency room with abdominal pain. He has had chronic recurrent abdominal pains for the past 4 to 6 months. His work-up was negative. He tells me that he was in [place] the day before and had the same symptoms and went to [facility]. He tells me that a CT scan of his abdomen was performed, and that was negative. [] Past Medical History Allergies/Adverse Reactions: Allergies quetiapine fumarate [From Seroquel] Adverse Reaction (Verified 02/14/19 04:34) ERECTION THAT LASTS LONGER THAN 4 HOURS Home Medications: Ambulatory Orders Medication Instructions Recorded Pravastatin [Pravachol] 40 mg PO DAILY 11/22/15 Gabapentin [Neurontin] 300 mg PO BIDCM PRN 06/13/16 Omeprazole [Prilosec] 40 mg PO DAILY 06/13/16 Potassium Chloride [K-Dur] 20 meq PO BID 5 Days #10 tab 02/13/19 Elviteg/Fifi/Emtric/Tenofo Ala 1 tab PO DAILY 02/14/19 [Genvoya Tablet] Smoking Status: Current every day smoker Review of Systems - Review of Systems General: Denies: Fever, Night Sweats, Fatigue Cardiovascular: Denies: Chest Discomfort, Shortness of Breath, Orthopnea, PND, Peripheral Edema, Palpitations, Lightheadedness, Dizziness, Near Syncope, Syncope Respiratory: Denies: Cough, Sputum Production, Hemoptysis Gastrointestinal: Denies: Hematemesis, Hematochezia, Melena Genitourinary: Denies: Dysuria, Hematuria Skin: Denies: Rash Objective: Vital Signs Temp Pulse Resp BP Pulse Ox 98.1 F 87 19 H 123/89 H 97 02/14/19 04:25 02/14/19 05:29 02/14/19 05:29 02/14/19 05:29 02/14/19 05:29 Oxygen Flow Rate (L/min) 2 Oxygen Delivery Method Nasal Cannula Weight: 129 lb 6.581 oz Body Mass Index (BMI) 22.1 General: Awake, Alert, Oriented x 3 HEENT: PERRL, EOMI, Sclera Non Icteric Neck: Supple, Good ROM, No Lymph Node Enlargement Lungs: Clear to auscultation Cardiovascular: Regular Rhythm, Normal S1, Normal S2, No Murmurs, No Rubs, No Gallops Abdomen: Bowel Sounds Present, Soft, Non Tender, Non Distended Extremities: No Cyanosis, No Clubbing, No edema Musculoskeletal: No Erythema Skin: No Rashes Lymphatic: No Lymph Node Enlargement Neurological: No Focal Motor or Sensory Deficit Psych/Mental Status: Appropriate 02/14/19 04:34: WBC 6.8, RBC 5.11, Hgb 15.0, Hct 45.2, MCV 88.5, MCH 29.4, MCHC 33.2, RDW 12.5, RDW Differential 40.6, Plt Count 169, MPV 11.8, Immature Gran % (Auto) 0.100, Neut % (Auto) 41.9 L, Lymph % (Auto) 45.9 H, [place] % (Auto) 10.3 H, Eos % (Auto) 1.5, Baso % (Auto) 0.3, Absolute Neuts (auto) 2.8, Total Counted Not Reportable 02/14/19 04:34: PT 12.5, INR 1.0, APTT 27.5 02/14/19 04:34: Sodium 143, Potassium 3.3 L, Chloride 105, Carbon Dioxide 29.0, Anion Gap 9, BUN 8, Creatinine 1.11, Est GFR (MDRD) Af Amer 89, Est GFR (MDRD) Non-Af 74, BUN/Creatinine Ratio 7.2 L, Glucose 116 H, Calcium 8.7, Troponin I 0.030 Rhythm: EKG: ECHO: Stress Test: Cardiac Cath: PCI: CT Surgery: Holter monitor: EPS: PPM: CXR: Chest CT Scan: Assessment/Plan Impression: 1. Acute anterior ST elevation TN due to severe mid LAD stenosis status post successful PCI using a 2.5 x 18 mm drug-eluting stent. 2. Moderate to severe LV systolic dysfunction. 3. Dyslipidemia 4. Chronic tobacco abuse/COPD 5. Recurrent abdominal pains Plan: 1. dual antiplatelet therapy with aspirin and Brilinta. 2. Assess LV systolic function with a 2D echocardiogram tomorrow. 3. Add low-dose beta-praful therapy. 4. statin therapy, atorvastatin 40 mg daily, to replace pravastatin
--- NOTE | 2019-02-14 07:01 | NURSING ---
at 0645 patient noted to have hematoma approximately 6cm above TR band. Small amount of oozing from puncture site under TR band noted as well. Manual pressure held over radial artery for 15 minutes. No further oozing or bleeding noted. site above TR band is now soft. Patient educated once again on not moving his right arm and not using his right arm. Patient stated that he is leaving AMA as soon as possible and did not acknowledge attempt to educate.
[2019-02-14] MEDS: Carvedilol 3.125 MG TABLET PO (08:09)
[2019-02-14] MEDS: Pantoprazole Sodium 40 MG Tablet PO (08:09)
[2019-02-14] MEDS: TICAGRELOR 90 MG TABLET PO (08:09)
[2019-02-14] MEDS: Aspirin 81 MG TAB.CHEW PO (08:09)
--- NOTE | 2019-02-14 08:17 | NURSING ---
Pt stated he plans to leave as soon as the TR band is removed. He stated he has thieves in his house and he needs to get home. He denied wanting to notify the police. He denied the need for a nicotine patch and stated he will resume smoking as soon as he leaves here. He is non compliant about wearing the psychologist experimental when ambulating to the bathroom. Education about Brillinta, aspirin, diltiazem shared with patient. He stated he plan to take his medicine as prescribed. He refused a cardiac low cholesterol diet, regular diet ordered.
--- NOTE | 2019-02-14 08:26 | NURSING ---
Pt screamed into the hallway, lets get going. I observed pt removing monitoring devices and then he began to pull his TR band off. Pt stated he is leaving against medical advice. Educations provided about pt needing prescriptions but he stated he does not care and that this hospital sucks. Dr. Chow informed.
--- NOTE | 2019-02-14 09:29 | NURSING ---
Called Patients home number and left a message with his sister that his prescriptions where called into [facility]. She stated she would give him the message
--- NOTE | 2019-02-14 14:48 | PCM.DC.SUM ---
Discharge Date and Diagnosis Date of Admission: 02/14/19 Date of Discharge: 02/14/19 - Primary Discharge Diagnosis Acute ST elevation [place], status post PTCA/LAVELL to mid LAD Hospital Course and Treatment Imaging Results: 02/14/19 06:28 Echo Complete [ECHO] Routine Clinical Impression(s) from Imaging Studies Chest X-Ray 02/14/19 04:33 IMPRESSION: Normal x-ray examination of the chest. Electronically Signed: Pankaj Krishna MD at 5:09 EDT , Service support , Dr. Lawrence, cardiology. Procedures: Cardiac catheterization, EKG Summary of Care Provided: Patient left AGAINST MEDICAL ADVICE before I see him and I did not have a chance to examine him. Nursing staff has been working very hard overnight to have him stay in the hospital after he had stent placed. He was informed that he has to be on Brilinta for at least one year to avoid thrombosis or clotting of his stent. This morning, patient insisted to go home and he left the ICU with a cigarette in his mouth. The patient is a 54 year old M presented to the emergency room because of chest pain and he was found to have acute anterior ST elevation AZ, underwent emergent cardiac catheterization, found to have single-vessel CAD of the left anterior descending artery, underwent emergent PCI with placement of drug-eluting stent to mid LAD. He was started on aspirin, beta-blockers, Brilinta and statins. His routine blood work was unremarkable. His vital signs were stable. Today, patient decided to leave AGAINST MEDICAL ADVICE. He was informed multiple times that he has to be on Brilinta for at least 12 months to avoid complications but he just woke out of the ICU and he was smoking cigarettes upon leaving. Patient left the hospital AGAINST MEDICAL ADVICE and he was not evaluated by a physician on the day he left the hospital. After patient left, I sent electronic prescriptions to his [facility] pharmacy and prescriptions were for aspirin 81 mg p.o. daily, Lipitor 40 mg p.o. daily, Brilinta 90 mg p.o. twice daily and Coreg 3.125 mg p.o. twice daily. ICU nurse called the patient told him know that we sent prescriptions to his pharmacy. - Physical Exam Vital Signs Temp Pulse Resp BP Pulse Ox 98 F 82 15 122/83 H 100 02/14/19 08:00 02/14/19 08:00 02/14/19 08:00 02/14/19 08:00 02/14/19 08:00 Oxygen Flow Rate (L/min) 2 Oxygen Delivery Method Room Air Weight: 129 lb 6.581 oz Body Mass Index (BMI) 22.1 Laboratory Tests Past 24 Hrs 02/14/19 02/14/19 02/14/19 04:34 04:34 04:34 WBC 6.8 RBC 5.11 Hgb 15.0 Hct 45.2 MCV 88.5 MCH 29.4 MCHC 33.2 RDW 12.5 RDW Differential 40.6 Plt Count 169 MPV 11.8 Immature Gran % (Auto) 0.100 Neut % (Auto) 41.9 L Lymph % (Auto) 45.9 H [place] % (Auto) 10.3 H Eos % (Auto) 1.5 Baso % (Auto) 0.3 Absolute Neuts (auto) 2.8 Absolute Lymphs (auto) 3.12 Total Counted Not Reportable PT 12.5 INR 1.0 APTT 27.5 Activated Clotting Time Sodium 143 Potassium 3.3 L Chloride 105 Carbon Dioxide 29.0 Anion Gap 9 BUN 8 Creatinine 1.11 Estim Creat Clear Calc 63.79 Est GFR (MDRD) Af Amer 89 Est GFR (MDRD) Non-Af 74 BUN/Creatinine Ratio 7.2 L Glucose 116 H Calcium 8.7 Troponin I 0.030 02/14/19 05:36 WBC RBC Hgb Hct MCV MCH MCHC RDW RDW Differential Plt Count MPV Immature Gran % (Auto) Neut % (Auto) Lymph % (Auto) [place] % (Auto) Eos % (Auto) Baso % (Auto) Absolute Neuts (auto) Absolute Lymphs (auto) Total Counted PT INR APTT Activated Clotting Time 362 H Sodium Potassium Chloride Carbon Dioxide Anion Gap BUN Creatinine Estim Creat Clear Calc Est GFR (MDRD) Af Amer Est GFR (MDRD) Non-Af BUN/Creatinine Ratio Glucose Calcium Troponin I Home Medications: Medications to take at Discharge Pravastatin [Pravachol] 40 mg PO DAILY 11/22/15 Gabapentin [Neurontin] 300 mg PO BIDCM PRN 06/13/16 Omeprazole [Prilosec] 40 mg PO DAILY 06/13/16 Potassium Chloride [K-Dur] 20 meq PO BID 5 Days #10 tab 02/13/19 Aspirin 81 mg PO DAILY #90 tab.chew 02/14/19 Atorvastatin Calcium [Lipitor] 40 mg PO QHS #90 tab 02/14/19 Carvedilol [Coreg] 3.125 mg PO BID #90 tab 02/14/19 Elviteg/Fifi/Emtric/Tenofo Ala [Genvoya Tablet] 1 tab PO DAILY 02/14/19 Ticagrelor [Brilinta] 90 mg PO BID #90 tab 02/14/19 Following Prescrptions Were Given to Patient: Aspirin 81 mg PO DAILY #90 tab.chew Transmission Status: Received by [facility] [id number] Ticagrelor [Brilinta] 90 mg PO BID #90 tab Transmission Status: Received by [facility] [id number] Carvedilol [Coreg] 3.125 mg PO BID #90 tab Transmission Status: Received by [facility] [place] [facility] [id number] Atorvastatin Calcium [Lipitor] 40 mg PO QHS #90 tab Transmission Status: Received by [facility] [facility] [place] [id number] Primary Care Physician: Care Physician,No Primary [Primary Care Provider] - Disposition: Against Medical Advice Minutes spent on discharge:: 25 Patient Condition:: Stable Medical Necessity - Tobacco Use Smoking Status: Current every day smoker Meaningful Use Info Meaningful Use Diagnoses (Choose all that apply): None applicable Code Visit Inpatient E&M: 40405 Disch Hosp
--- NOTE | 2019-02-15 09:16 | CRPHASE1_ITS ---
Patient Communication PHII Cardiac Rehab Discussed with Patient:: No Guide to Cardiac Rehab Given to Patient:: No Cardiac Rehab Facility Choice List Given to Patient:: No Choice Program [facility] PHII:: Communication Given to CR, Refer to [facility] Secretarial Stenographer:: Shay Barragan PCP:: NO PRIMARY Refer Phase II Cardiac Rehab:: No - PATIENT LEFT ICU AGAINST MEDICAL ADVICE Choice Letter Given to Patient:: No - Patient left the ICU against medical advice smoking Guide to Cardiac Rehab Given by ICU Staff Prior to Discharge: No Guide to Cardiac Rehab Mailed to Patient by CR Staff:: No Patient Contacted Post Discharge by CR Staff:: No Risk Factors/Lifestyle Family History: Family History (Last Updated 10/22/17 @ 09:34 by Vangie Patel) Mother Asthma Diabetes Hypertension CVA (cerebral vascular accident) Cardiac Rehabilitation Info Cardiac Rehabilitation Program Information: Cardiac Rehabilitation is important for patients like you who are recovering from a heart problem. Cardiac rehabilitation programs are recognized as integral to the continued care of the patient with coronary heart disease. The cardiac rehabilitation program is designed to optimize a patient's physical, psychological, and social functioning. Health career education teacher work in cardiac rehabilitation programs and assist you with getting the treatments you need to get stronger and healthier - like exercise, healthy eating habits, and medications. Cardiac rehabilitation has been show to help people with heart problems live longer and have better life enjoyment than people who do not go to cardiac rehabilitation. Please contact the Cardiac Rehabilitation Program at [facility] at in two weeks if you have not heard from them. Patient left the ICU against medical advice, with a cigarette in his mouth as he walked out of the ICU unit. The patient had not been evaluated by a physician prior to leaving [facility] on the day he left the hospital. The ICU nursing staff had been working hard overnight to keep the patient in the hospital after he had the stent placed. The morning the patient walked out against medical advice or being seen by a physician. The patient's presciptions were sent to his retail pharmacy ([facility]). ICU nurse called the patient and told him that his presciptions were sent to his pharmacy.
--- NOTE | 2019-02-15 09:26 | CRPH1.INSTRU ---
General Education CAD and cardiac anatomy and function:: Not instructed Explanation of diagnoses and procedures:: Not instructed Sign/Symptoms of MA:: Not instructed Antiplatelet therapy: Not instructed Emergency procedures and activation of EMS: Not instructed Compliance of all prescribed medications: Not instructed - Patient left ICU Against Medical Advice or being seen by a physician.
== END 2019-02-14 08:30 | disposition left against medical advice (07) | DRG 247 ==
LOC: ED 04:31 → ICU 05:01
PROVIDERS: Admitting Provider Hospitalist; Emergency Provider Emergency Medicine; Referring Provider Internal Medicine Cardiovascular Disease; Visit Provider Hospitalist
DX: I21.09 ST elevation (STEMI) myocardial infarction involving other coronary artery of anterior wall (principal); B20 Human immunodeficiency virus [HIV] disease; J44.9 Chronic obstructive pulmonary disease, unspecified; E78.00 Pure hypercholesterolemia, unspecified; I10 Essential (primary) hypertension; G89.29 Other chronic pain; R10.13 Epigastric pain; E87.6 Hypokalemia; Z79.899 Other long term (current) drug therapy; I25.10 Atherosclerotic heart disease of native coronary artery without angina pectoris; F17.210 Nicotine dependence, cigarettes, uncomplicated
CPT/HCPCS: 71045; 74246; 80048; 80053; 81001; 82274; 84484; 85025; 85347; 85610; 85730; 92941; 93005; 93458; 99152; 99153; 99284; 99285; J7030; J7040; Q9967; A4216; C1725; C1769; C1874; C1887; C1894; C9606; J1327; J2405

== ENCOUNTER 2020-08-17 07:31 | Emergency (ER) | payer MEDICARE, MEDICAID, SELFPAY ==
[2019-02-14 06:15] VITALS: BMI 22.1
[2020-08-17 07:33] VITALS: BP 147/90; PULSE 88; RESP 18; TEMP 36.6; O2SAT 100; BMI 20.5
--- NOTE | 2020-08-17 07:42 | ED.VIS.GEN ---
History of Present Illness Chief Complaint: Complaint Detail of Chief Complaint: Dysuria and penile discharge x2 to 3 days Onset: Days - 2 to 3 days Context: Sudden Onset Timing: Continuous Quality: Dysuria and thick yellow penile discharge Location: Urethral discharge Current Severity: Mild Maximum Severity: Moderate Worsened by: New sexual encounter Relieved by: Nothing Associated Symptoms: No constitutional symptoms Narrative: Patient is a 55-year-old male with history of psychiatric disorders who presents with dysuria and penile discharge that started 2 to 3 days ago. He had unprotected sexual course with a new person the last 6 months. He reports history of STI and believes he had gonorrhea. He denies fever, chills night sweats. He denies photophobia or neck pain. He denies arthralgias or joint swelling. He denies rash. He denies testicular or scrotal pain. He denies swelling of his testicles or scrotum. He denies any penile lesions. He denies GI symptoms. Prior similar symptoms: Yes Recent Illness/Hospitalization: No - Past Medical History (1) Ischemic cardiomyopathy Status: Acute (2) Essential (primary) hypertension Status: Chronic (3) Hyperlipidemia Status: Chronic Past Medical History - Allergies and Home Meds Allergies/Adverse Reactions: Allergies amitriptyline Allergy (Verified 08/17/20 07:33) Swelling trazodone Allergy (Verified 08/17/20 07:33) Swelling quetiapine fumarate [From Seroquel] Adverse Reaction (Verified 08/17/20 07:32) ERECTION THAT LASTS LONGER THAN 4 HOURS Primary Care Physician: Care Physician,No Primary [Primary Care Provider] - Prior records reviewed: Yes Surgical History: - - Cardiac catheterization with deployment of stents Smoking Status: Current every day smoker Alcohol: Rare Drugs: None Review of Systems General: Denies: Chills, Fever, Malaise, Subjective, Sweats, Weight loss Eyes: Denies: Visual changes - bilaterally, Blurred Vision - bilaterally ENT: Denies: Rhinorrhea, Sore throat Cardiovascular: Denies: Chest pain, Palpitations Gastrointestinal: Denies: Abdominal pain, Nausea, Vomiting Musculoskeletal: Denies: Myalgias, Arthralgias, Back pain, Swelling, Extremity Pain Skin: Denies: Rash, Wounds Neurological: Denies: Headache Hematologic: Denies: Easy bruising, Easy bleeding Physical Exam Vital Signs/Narrative: Vital Signs Temp Pulse Resp BP Pulse Ox 12/24/20 07:33 97.9 F 88 18 147/90 H 100 Inital Vital Signs reviewed: Yes General: Well nourished, Well developed, Unkempt Head: Normocephalic, Atraumatic Eyes: Perrl, EOMI, - - Conjunctive is not injected.. Negative for: Pale conjunctiva, Scleral icterus Neck: Supple, Nontender Cardiovascular: Regular rate, Regular rhythm, No murmurs, Normal S1, Normal S2 Respiratory: No distress, CTA bilaterally, Chest nontender : - - Circumcised male with hypospadias. No penile lesions noted. There is a thick green urethral discharge noted. Testes are descended bilaterally with no testicular or epididymal tenderness. There is no swelling of the testicles or scrotum. There is no inguinal lymphadenopathy. There are no lesion Extremities: Nontender, No edema Skin: Normal color, No rash Neurological: Alert, Oriented x3, Cranial nerves II-XII grossly intact, Normal Strength, Normal Sensation Psychological: - - Affect is flat Diagnostic/Tx/Re-eval - Medical Decision Making She presents with urethritis. In light of new sexual partner and urethral drainage suspect patient has gonorrhea. He may have a concomitant chlamydial infection. He was treated with Rocephin and azithromycin. Since he has no systemic symptoms no laboratory tests were obtained. ED Disposition - Plan for ED Patient: Disposition: Home or Assisted Living Diagnosis: Urethritis Instructions: ED STI Male Treated Referrals: Care Physician,No Primary [Primary Care Provider] - Deepthi Guevara [NON-STAFF] - As Needed
[2020-08-17] MEDS: Azithromycin 250 MG Tablet 1000 MG PO (08:07)
[2020-08-17] MEDS: Ceftriaxone 500 MG Vial 250 MG IM (08:08)
[2020-08-17 10:04] LABS: Chlamydia Trachomatis by PCR Negative (Negative); Neisserai gonorrhoeae by PCR Positive (Negative); Probe Check PASS
== END 2020-08-17 08:13 | disposition home or self-care (01) ==
LOC: ED 08:04
PROVIDERS: Emergency Provider Emergency Medicine
DX: N34.2 Other urethritis (principal); I10 Essential (primary) hypertension; E78.5 Hyperlipidemia, unspecified; F17.200 Nicotine dependence, unspecified, uncomplicated
CPT/HCPCS: 87491; 87591; 96372; 99283

== ENCOUNTER → 2021-01-04 09:57 | Outpatient (CLI) | payer MEDICARE, MEDICAID, SELFPAY ==
--- NOTE | 2021-01-04 10:02 | RAD_ITS ---
STUDY: X-RAY - LUMBAR SPINE REASON FOR EXAM: Male, 55 years old. BACK PAIN TECHNIQUE: 3 view(s) of the lumbar spine were obtained. COMPARISON: None FINDINGS: Normal lumbar lordosis. There is no substantial scoliosis. There is a normal alignment of the vertebrae. Normal vertebral bodies and endplates. Normal disc space heights. The soft tissue structures are unremarkable. RAD/Lumbar Spine 2 or 3 Views IMPRESSION: Normal x-ray examination of the lumbar spine. Electronically Signed: Will Jean MD at 12:31 EDT , Service support ,
== END ==
PROVIDERS: PCP Internal Medicine; Referring Provider Anesthesiology Pain Medicine; Visit Provider Anesthesiology Pain Medicine
DX: M54.5 Low back pain (principal)
CPT/HCPCS: 72100

== ENCOUNTER → 2021-02-15 13:29 | Outpatient (CLI) | payer MEDICARE, MEDICAID, SELFPAY ==
[2021-02-15 17:57] LABS: Amphetamine Urine VISTA NEGATIVE (<1000 ng/mL); Barbiturate Urine VISTA NEGATIVE (< 200 ng/mL); Benzodiazepine Urine VISTA NEGATIVE (< 200 ng/mL); Cocaine Urine VISTA NEGATIVE (< 300 ng/mL); Ecstacy Urine VISTA NEGATIVE (< 500 ng/mL); Methadone Urine VISTA NEGATIVE (< 300 ng/mL); PCP Urine VISTA NEGATIVE (< 25 ng/mL); THC Urine VISTA NEGATIVE (< 50 ng/mL); Vista UDS pH Range 6
== END ==
PROVIDERS: PCP Internal Medicine; Referring Provider Anesthesiology Pain Medicine; Visit Provider Anesthesiology Pain Medicine
DX: F11.20 Opioid dependence, uncomplicated (principal)
CPT/HCPCS: 80307

== ENCOUNTER → 2023-05-29 | Outpatient (CLI) | payer MEDICARE, MEDICAID, SELFPAY ==
--- NOTE | 2023-05-29 12:47 | ECHOD_ITS ---
Reason For Study: ANGINA PECTORIS Procedure This was a 2D Doppler, Color Flow transthoracic echocardiogram. Left Ventricle Normal size and thickness. Apical false tendon noted. The left ventricular ejection fraction is 50 %. Mild posterior hypokinesis. Right Ventricle Normal right ventricle. Atria The left and right atria are normal. Mitral Valve Mild-Moderate (1-2+) eccentric mitral valve insufficiency. Tricuspid Valve Trivial tricuspid valve insufficiency. Normal pulmonary artery pressure. Aortic Valve Trisinus/trileaflet aortic valve. Moderate (2+) aortic valve insufficiency. Pulmonic Valve The pulmonic valve is not well visualized. Great Vessels The aortic root is not well visualized. Pericardium/Pleural No pericardial effusion. MMode/2D Measurements & Calculations LVIDd: 4.8 cm IVSd: 0.82 cm LVOT diam: 2.0 cm LVIDs: 3.1 cm LVPWd: 0.82 cm LVOT area: 3.0 cm2 RVDd: 2.9 cm FS: 35.4 % Ao root diam: 2.9 cm LAV(MOD-bp): 41.4 ml LVAd ap4: 30.6 cm2 LAV(MOD-bp) Indexed: 25.6 ml/m2 LVLd ap4: 7.6 cm LAV(MOD-sp2): 40.7 ml EDV(MOD-sp4): 101.8 ml LAV(MOD-sp4): 41.1 ml EDV(sp4-el): 104.9 ml LVAs ap4: 19.8 cm2 LVLs ap4: 6.7 cm ESV(MOD-sp4): 48.3 ml ESV(sp4-el): 50.0 ml EF(MOD-sp4): 52.5 % EF(sp4-el): 52.3 % LVAd ap2: 30.8 cm2 SV(MOD-sp4): 53.5 ml SV(MOD-sp2): 58.3 ml LVLd ap2: 7.6 cm EDV(MOD-sp2): 103.3 ml EDV(sp2-el): 105.3 ml LVAs ap2: 18.4 cm2 LVLs ap2: 6.1 cm ESV(MOD-sp2): 45.1 ml ESV(sp2-el): 47.1 ml EF(MOD-sp2): 56.4 % SV(sp4-el): 54.9 ml LA dimension(2D): 3.1 cm LA A4 area: 15.2 cm2 RA A4 area: 12.3 cm2 Time Measurements MV dec time: 0.26 sec Doppler Measurements & Calculations MV E max jerson: 74.5 cm/sec Lat Peak E' Jerson: 12.3 cm/sec Med Peak E' Jerson: 12.3 cm/sec MV A max jerson: 99.6 cm/sec E/E' lat: 6.1 E/E' med: 6.1 MV E/A: 0.75 Ao V2 max: 135.2 cm/sec AI max jerson: 409.0 cm/sec MV dec slope: 290.4 cm/sec2 Ao max P.3 mmHg AI max P.0 mmHg Ao V2 mean: 91.3 cm/sec Ao mean P.9 mmHg AI dec slope: 236.0 cm/sec2 Ao V2 VTI: 31.5 cm AI P1/2t: 507.6 msec AV (velocity ratio): 0.82 TYSON(I,D): 2.5 cm2 TYSON(V,D): 2.4 cm2 LV V1 max: 108.3 cm/sec MR max jerson: 455.5 cm/sec SV(LVOT): 77.3 ml LV V1 max P.7 mmHg MR max P.0 mmHg LV V1 mean P.4 mmHg MR mean jerson: 363.0 cm/sec LV V1 mean: 71.9 cm/sec MR mean P.5 mmHg LV V1 VTI: 25.7 cm MR VTI: 150.9 cm PA V2 max: 91.5 cm/sec TR max jerson: 222.6 cm/sec PA V2 mean: 64.5 cm/sec TR max P.8 mmHg ECHO/Echo Complete Interpretation Summary The left ventricular ejection fraction is 50 %. Mild posterior hypokinesis Moderate (2+) aortic valve insufficiency. Mild-Moderate (1-2+) eccentric mitral valve insufficiency. Ordering Physician: Gavin Alexander Referring Physician: Lindsey Cisneros Performed By: Maris Arteaga, DENIS, RVT
== END | disposition home or self-care (01) ==
LOC: CVS 12:47
PROVIDERS: PCP Internal Medicine; Referring Provider Internal Medicine Cardiovascular Disease; Visit Provider Internal Medicine Cardiovascular Disease
DX: I25.119 Atherosclerotic heart disease of native coronary artery with unspecified angina pectoris (principal); I34.0 Nonrheumatic mitral (valve) insufficiency; I35.1 Nonrheumatic aortic (valve) insufficiency
CPT/HCPCS: 93306

== ENCOUNTER 2023-06-17 09:03 | Day surgery (SDC) | payer MEDICARE, MEDICAID, SELFPAY ==
[2023-06-03 08:18] LABS: Hemoglobin 16.1 g/dL (13.0-16.5); Mean Corp Hgb Conc 34.3 g/dL (32-36); Mean Corpuscular Hgb 32.1 pg (27.0-32.0); Mean Corpuscular Volume 93.6 fL (80-94); Mean Platelet Vol. 11.5 fl (6.2-12.0); Platelet Count 193 K/mm3 (150-450); RBC Distribution Width CV 12.7 % (11.6-14.6); RBC Distribution Width SD 43.7 fl (35.1-43.9); Red Blood Count 5.02 M/mm3 (4.6-6.2); White Blood Count 5.5 K/mm3 (4.4-11.0)
--- NOTE | 2023-06-03 08:25 | RAD_ITS ---
INDICATION: COPD, for heart cath -- for heart cath EXAMINATION/TECHNIQUE: X-RAY - XR Chest 2 Views COMPARISON: Prior study dated: 02/14/2019 FINDINGS: LINES/DEVICES: None. LUNGS: The lungs are well expanded. No consolidation, edema or effusion. No pneumothorax. MEDIASTINUM AND CARDIOVASCULAR STRUCTURES: Cardiac silhouette not enlarged. Central airways and mediastinal contour are unremarkable. BONES AND SOFT TISSUES: Unremarkable. RAD/Chest PA and Lateral IMPRESSION: No acute pulmonary finding. Electronically Signed: Ben Avery MD at 12:26 EDT ,
[2023-06-03 08:31] LABS: Prothrombin Time (Protime)PT. 13.5 SECONDS (11.7-14.9)
[2023-06-03 08:57] LABS: Anion Gap 0 (5-15); BUN 9 mg/dL (7-18); BUN/Creat Ratio 6.8 RATIO (10-20); Calcium,Total 8.8 mg/dL (8.5-10.1); Chloride 102 mmol/L (98-107); Creatinine, Serum 1.33 mg/dL (0.70-1.30); EST Glomerular Filtration Rate 59 mL/min (>60); Est Glom Filt Rate - Afr Amer 71 mL/min (>60); Glucose 94 mg/dL (74-106); Potassium 3.6 mmol/L (3.5-5.1); Sodium Level 135 mmol/L (136-145)
--- NOTE | 2023-06-10 17:41 | HP.PCM_ITS ---
History and Physical Date of Admission: 06/17/23 This gentleman has past medical history significant for coronary artery disease status post anterior LA in 2019. He had coronary angiography done and had a drug-eluting stent placed to his proximal LAD. Patient never followed up in the office then. Per patient, he has had further interventions done at different hospitals. His last coronary angiography and intervention was in June of last year according to him. Patient also has history of bipolar disorder, HIV, emphysema, dyslipidemia and hypertension. According to the patient, for the last year or so he has been having anterior chest tightness with exertion. No rest symptoms. According to him, he also gets short of breath with exertion. No orthopnea. No PND. No ankle edema. Patient's records show that a transesophageal echocardiogram done in November of this year showed severe mitral regurgitation with moderate aortic valve regurgitation. According to the patient, he was advised surgery but he got scared. Repeat echo in 05/2023 demonstrated EF of 5% with posterior hypokensis and Moderate AI, Mild to moderate LA. He is here today to undergo a heart cath for further evaluation. Medications albuterol sulfate 90 mcg/actuation aerosol inhaler 2 puff inhalation Q4H PRN 05/12/23 [History Confirmed 05/14/23] aripiprazole 10 mg tablet 15 mg PO DAILY 05/12/23 [History Confirmed 05/14/23] atorvastatin 20 mg tablet 40 mg PO DAILY 05/12/23 [History Confirmed 05/14/23] bictegravir 50 mg-emtricitabine 200 mg-tenofovir alafenam 25 mg tablet (Biktarvy) 1 tab PO DAILY 05/12/23 [History Confirmed 05/14/23] clopidogrel 75 mg tablet 75 mg PO DAILY 05/12/23 [History Confirmed 05/14/23] gabapentin 800 mg tablet 800 mg PO TID 05/12/23 [History Confirmed 05/14/23] nitroglycerin 0.4 mg sublingual tablet (Nitrostat) 0.4 mg sublingual Q5M PRN 05/12/23 [History Confirmed 05/14/23] aspirin 81 mg capsule 81 mg PO DAILY 05/14/23 [History Confirmed 05/14/23] lisinopril 10 mg tablet 10 mg PO DAILY 05/14/23 [History Confirmed 05/14/23] metoprolol succinate 25 mg tablet,extended release 24 hr 25 mg PO DAILY 05/14/23 [History Confirmed 05/14/23] PFSH Medical History (Updated 05/14/23 @ 10:[address] aGvin Alexander MD) Abdominal pain in male Aortic insufficiency Atherosclerotic heart disease of cahto coronary artery without angina pectoris BAHA cochlear implant bone infection Bipolar 2 disorder Blepharospasm COPD (chronic obstructive pulmonary disease) Depression Diarrhea Essential (primary) hypertension Hearing loss History of DVT (deep vein thrombosis) History of ST elevation myocardial infarction (STEMI) (02/14/19) HIV (human immunodeficiency virus infection) Hyperlipidemia Ischemic cardiomyopathy Mitral regurgitation Orofacial dyskinesia Pulmonary embolism Schizophrenia Surgical History H/O colonoscopy H/O eye surgery H/O toe surgery History of coronary artery stent placement (02/14/19) Family History Mother Asthma Diabetes Hypertension CVA (cerebral vascular accident) COPD (chronic obstructive pulmonary disease) HyperlipidemiaGrandmother Hypertension Myocardial infarctionGrandfather Myocardial infarction Social History (Updated 05/14/23 @ 09:41 by Ailin Velazco, RN) Smoking Status: Current every day smoker tobacco type: cigarettes alcohol intake: never caffeine: Yes Type: carbonated beverages Number of servings: 4, coffee Number of servings: 3 and tea ROS Const Const: Positive for fatigue (several years, worsening); Negative for weakness ENT ENT: Negative for dizziness or balance problems Cardio Chest Pain: Yes Frequency: weekly Character: sharp Onset: exercise Location: left chest Duration: brief Exacerbation: activity Palpitations: No Edema: None Muscle aches with walking: None Resp Respiratory: Positive for SOB with activity (several years, worsening); Negative for SOB at rest or SOB orthopnea\SOB lying down GI GI: Positive for nausea (intermittently, more prominent in the morning); Negative vomiting or heartburn Musc Musc: Negative for muscle weakness or balance problems Neuro Neuro: Negative for dizziness, lightheadedness, near syncope, syncope or we akness Endo Endo: Positive for fatigue (several years, worsening) Cardiology Exam Const Appearance: comfortable and no acute distress Nutritional Appearance: well nourished Neck Neck: no JVD Carotids: Negative bruit Chest Auscultation: Bilateral: Clear to Auscultation Cardio Rate: regular rate Rhythm: regular rhythm Heart sounds: S1 normal and S2 normal 2/6 systolic murmur at apex Neuro General: patient alert, patient awake and patient oriented x3 Extremities Lower Extremity Edema: None: Bilateral Supplemental Info Supplemental Information Transesophageal Echocardiogram (12/03/22) Luis M Aly: Summary 1. Left ventricle: Systolic function is normal. The estimated ejection fraction is 55%. 2. Aortic valve: There is no evidence of vegetation. There is moderate regurgitation. 3. Mitral valve: There is no evidence of vegetation. There is severe regurgitation. 4. Left atrium: There is no evidence of thrombus in the atrial cavity or appendage. 5. Pulmonic valve: There is no evidence of vegetation. 6. Tricuspid valve: There is no evidence of vegetation. 7. Right atrium: There is no evidence of thrombus in the atrial cavity or appe ndage. 8. Atrial septum: No defect or patent foremen ovale is identified. Echo contrast study following an increase in RA pressure induced by provocative maneuvers, shows no [id number] atrial level shunt. Left Heart Cath 03/14/22 ([facility]): -The left main is short in length with a normal caliber. -The LAD is moderate sized vessel with two diagonal branches. There is a previously placed stent in the proximal LAD which is free of stenosis. There is a 30% stenosis of the LAD in the mid/distal LAD. -The LCx is a large sized vessel with two significant obtuse marginal branches. The vessel is widely patent. -The right coronary artery is widely patent. -Left dominant coronary arterial circulation -The LVEDP is normal at 12mmHg -There is no gradient on LV-Ao pullback. Coronary Angiography 08/05/22 ([facility]): Impression Severe single vessel CAD Successful angioplasty and successful (drug-eluding) stenting of the 60-70% in stent restenosis in the proximal to mid left anterior descending artery. Successful (drug-eluding) stenting of the 70-80% stenosis in the mid left anterior descending artery Successful angioplasty and successful (drug-eluding) stenting of the 70-80% stenosis in the proximal left anterior descending artery Successful angioplasty of the 90-99% stenosis in the proximal first diagonal artery. The SYNTAX score was 15, indicating that percutaneous coronary intervention is most appropriate. Coronary Angiography 10/17/20 ([facility]): Impression Severe single vessel CAD 30-40% in-stent restenosis in the proximal to mid left anterior descending artery Left ventriculogram not done due to patient having recent echo Pharmacological Stress Test 05/26/20 ([facility] [place]): Interpretation Summary The LV EF is calculated at 62% Small apical artifact No ischemia Low Risk Study Left Heart Cath 02/28/2019 ([facility]): -Left ventricular ejection fraction was 50-55%. There was no transaortic gradient. -Left main coronary artery was small to medium. There were luminal irregularities in the left main coronary artery. -The pre-existing stent in the mid left anterior descending artery had less than 10% in-stent restenosis from the proximal to distal portion. There was a 40-50% tubular stenosis in the mid left anterior descending artery. FFR was utilized to evaluate the significance of the stenosis in the left anterior descending artery. -The circumflex artery gave rise to two obtuse marginal arteries. There were luminal irregularities in the left circumflex artery. -There were luminal irregularities in the right coronary artery. Cardiac Cath 02/14/19 ([facility]): CONCLUSIONS Acute LA due to occlusion of LAD Single vessel CAD of the LAD Successful PTCA/LAVELL mid LAD Successful emergent PCI with Drug eluting stent and PTCA to the mid LAD Labs: Assessment & Plan Assessment/Plan (1) Aortic insufficiency: (2) Mitral regurgitation: (3) Essential (primary) hypertension: (4) Atherosclerotic heart disease of cahto coronary artery without angina pectoris: (5) Ischemic cardiomyopathy: (6) History of coronary artery stent placement: PLAN: Plan Pt will undergo a diagnostic heart cath to further assess. Follow up will be based on findings.
--- NOTE | 2023-06-17 12:28 | CL.D_ITS ---
Patient Name: KIMBERLY BRANHAM Study Date: 06/17/2023 Performing: Gavin Alexander MD Ht: 64 inches 162.56 cm : 1965 Wt: 128 lbs 58.06 kg Age: 58 Gender: male BSA: 1.62 PROCEDURE(S) PERFORMED DC01-(47724)LHC/COR/LV DC11-([id number])AO ROOT ANGIO WITH HEART CATH CLINICAL PROFILE AND INDICATIONS Indications: Stable Known CAD Heart Failure: None CAD Presentations: Symptom unlikely to be ischemic. CONCLUSIONS 30% ISR LAD LVEF 55% Mild MR/AR RECOMMENDATIONS Medical therapy DESCRIPTION OF PROCEDURE The patient arrived to the procedure lab. The risks and benefits of the procedure as well as a full description of our services here and current unavailability of surgical backup were fully explained to the patient and/or their significant other prior to the catheterization. The Timeout was completed, verifying the correct patient and procedure. The patient's procedural site was prepped and draped in the usual fashion. Local anesthetic was given subcutaneously to right radial region with Lidocaine 2%. Using a modified Seldinger technique, arterial access was obtained via the right radial artery, a 6Fr sheath was inserted. Left Coronary Artery selective angiography was performed in multiple views using a 5 Fr. 4.0 [place] catheter. Right Coronary Artery selective angiography was then performed in multiple views using a 5 Fr. 4.0 [place] catheter. Left Ventriculography was performed in DIAZ projection using a 5 Fr. Pigtail catheter. LV to AO pullback pressures were then recorded. aortic root was applied for hemostasis-9cc air CORONARY ANGIOGRAPHY DOMINANCE: Right Dominant LEFT HEART ASSESSMENT Left Ventricular Ejection Fraction: by LV Gram 55 % LVEDP: 10 mmHg LEFT MAIN: Angiographically normal LEFT ANTERIOR DESCENDING ARTERY: 30% ISR Mid LAD DIAGONAL 1: Tubular 50% Ostial lesion in 1st Diagonal CIRCUMFLEX ARTERY: CIRCUMFLEX: Luminal Irregularities 10% Proximal lesion in Circumflex RIGHT CORONARY ARTERY: Angiographically normal VALVE FINDINGS: Aortic Valve Insufficiency: Grade 2 Mild MR COMPLICATIONS No Complications PROCEDURE MEDICATIONS Fentanyl 50 mcg IV Versed 1 mg IV Oxygen: 2 L/min via nasal cannula Heparin given IA 06/17/2023 11:20:24 Verapamil 2.5mg, Ntg 200mcgs, 2000 units of Heparin given IA 06/17/2023 11:20:24 IV Fluids: .9 NaCl 250cc recieved throughout procedure 06/17/2023 11:33:59 SUMMARY OF HEMODYNAMIC DATA Time AIR REST ECG 09:20:22 AO 77/45 (60) SA 11:23:17 LV 97/-3, 10 11:27:42 LV 98/-4, 12 11:27:51 LV 75/11, 16 11:29:05 LVp 91/-5, 13 11:31:00 AOp 91/49 (68) 11:31:07 AO 110/19 (67) 11:32:27 Signed By Gavin Alexander MD On 06/17/2023 12:27:29 Gavin Alexander MD
== END 2023-06-17 13:30 | disposition home or self-care (01) ==
LOC: CLSP 09:04
PROVIDERS: PCP Internal Medicine; Referring Provider Internal Medicine Cardiovascular Disease; Visit Provider Internal Medicine Cardiovascular Disease
DX: I08.0 Rheumatic disorders of both mitral and aortic valves (principal); J43.9 Emphysema, unspecified; B20 Human immunodeficiency virus [HIV] disease; I25.10 Atherosclerotic heart disease of native coronary artery without angina pectoris; Z95.5 Presence of coronary angioplasty implant and graft; I10 Essential (primary) hypertension; E78.5 Hyperlipidemia, unspecified; I25.2 Old myocardial infarction; F17.210 Nicotine dependence, cigarettes, uncomplicated; I25.5 Ischemic cardiomyopathy
CPT/HCPCS: 36415; 71046; 80048; 85027; 85610; 85730; 93458; 99152; 99153; J7040; Q9967; C1769; C1894

== ENCOUNTER 2023-07-23 15:06 | Outpatient (CLI) | payer MEDICARE, MEDICAID, SELFPAY ==
[2023-07-23 16:09] LABS: Absolute Lymphocyte Count 1.85 X10^3/uL (0.83-4.51); Absolute Neutrophil Count 4.7 X10^3/uL (2.0-7.7); Basophil# 0.04 X10^3/uL; Basophil% 0.5 % (0-1); Eosinophil# 0.06 X10^3/uL; Eosinophils% 0.8 % (0-5); Hematocrit 44.5 % (40-54); Lymphocyte # 1.85 X10^3/ul (0.83-4.51); Lymphocyte % 25.2 % (19-41); Mean Corp Hgb Conc 33.7 g/dL (32-36); Mean Corpuscular Hgb 31.3 pg (27.0-32.0); Mean Corpuscular Volume 92.7 fL (80-94); Mean Platelet Vol. 12.4 fl (6.2-12.0); Monocyte# 0.62 X10^3/uL; Monocyte% 8.5 % (0-10); NRBC Flagged by Analyzer 0 % (0-5); Neutrophil # 4.74 X10^3/uL (2.7-7.7); Neutrophil % 64.7 % (47-70); Platelet Count 172 K/mm3 (150-450); RBC Distribution Width CV 12.2 % (11.6-14.6); RBC Distribution Width SD 42.1 fl (35.1-43.9); White Blood Count 7.3 K/mm3 (4.4-11.0)
[2023-07-23 16:31] LABS: ALB/GLOB Ratio 1.5 RATIO (0.9-2.4); AST(SGOT) 19 U/L (15-37); Alanine Aminotransfer ALT/SGPT 23 U/L (16-61); Albumin, Serum 4.1 g/dL (3.2-5.0); Alkaline Phosphatase 120 U/L (45-117); Anion Gap 6 (5-15); BUN 11 mg/dL (7-18); BUN/Creat Ratio 8.9 RATIO (10-20); Calcium,Total 8.6 mg/dL (8.5-10.1); Chloride 104 mmol/L (98-107); Cholesterol 104 mg/dL (200); Creatinine, Serum 1.24 mg/dL (0.70-1.30); EST Glomerular Filtration Rate 64 mL/min (>60); Est Glom Filt Rate - Afr Amer 77 mL/min (>60); Globulin 2.8 g/dL (2.2-4.2); Glucose 79 mg/dL (74-106); Potassium 3.5 mmol/L (3.5-5.1); Protein, Total 6.9 g/dL (6.4-8.2); Sodium Level 139 mmol/L (136-145); Triglycerides 103 mg/dL
[2023-07-23 16:44] LABS: Syphilis Antibodies Non-reactive
[2023-07-25 16:09] LABS: Absolute CD4 Helper 675 /uL (359-1519); Basophils (Absolute) 0 x10E3/uL (0.0-0.2); CD4/CD8 Ratio 0.89 (0.92-3.72); Eosinophils 1 % (Not Estab.); Eosinophils (Absolute) 0.1 x10E3/uL (0.0-0.4); Hematocrit 47.2 % (37.5-51.0); Hemoglobin 16.1 g/dL (13.0-17.7); Immature Granulocytes 0 % (Not Estab.); Immature Granulocytes Absolute 0 x10E3/uL (0.0-0.1); Lymphs 26 % (Not Estab.); Lymphs (Absolute) 1.7 x10E3/uL (0.7-3.1); MCH 31.9 pg (26.6-33.0); MCHC 34.1 g/dL (31.5-35.7); MCV 94 fL (79-97); Monocytes 8 % (Not Estab.); Monocytes (Absolute) 0.6 x10E3/uL (0.1-0.9); Neutrophils 64 % (Not Estab.); Neutrophils (Absolute) 4.2 x10E3/uL (1.4-7.0); Percent % CD4 Pos. Lymph. 39.7 % (30.8-58.5); Percent % CD8 Pos. Lymph. 44.6 % (12.0-35.5); Platelets 170 x10E3/uL (150-450); RBC Count 5.05 x10E6/uL (4.14-5.80); RDW 12.3 % (11.6-15.4); WBC Count 6.6 x10E3/uL (3.4-10.8)
[2023-07-26 13:07] LABS: HIV-1 RNA by PCR, Quant. < 20 copies/mL (.)
== END 2023-07-23 23:59 | disposition home or self-care (01) ==
PROVIDERS: PCP Internal Medicine; Visit Provider Internal Medicine Infectious Disease
DX: B20 Human immunodeficiency virus [HIV] disease (principal)
CPT/HCPCS: 36415; 80053; 82465; 84478; 85025; 86360; 86361; 86780; 87536

== ENCOUNTER → 2023-09-08 | Outpatient (CLI) | payer MEDICARE, MEDICAID, SELFPAY ==
[2023-09-08 11:35] LABS: ALB/GLOB Ratio 1.4 RATIO (0.9-2.4); AST(SGOT) 25 U/L (15-37); Alanine Aminotransfer ALT/SGPT 22 U/L (16-61); Albumin, Serum 4.3 g/dL (3.2-5.0); Alkaline Phosphatase 144 U/L (45-117); Anion Gap 6 (5-15); BUN 10 mg/dL (7-18); BUN/Creat Ratio 7.6 RATIO (10-20); Calcium,Total 9.3 mg/dL (8.5-10.1); Chloride 103 mmol/L (98-107); Cholesterol 107 mg/dL (200); Creatinine, Serum 1.31 mg/dL (0.70-1.30); EST Glomerular Filtration Rate 60 mL/min (>60); Est Glom Filt Rate - Afr Amer 72 mL/min (>60); Globulin 3.1 g/dL (2.2-4.2); Glucose 119 mg/dL (74-106); High Density Lipoprotein 37 mg/dL; Potassium 3.8 mmol/L (3.5-5.1); Protein, Total 7.4 g/dL (6.4-8.2); Sodium Level 137 mmol/L (136-145); Triglycerides 93 mg/dL; Very Low Density Lipoprotein 19 mg/dL (5-40)
== END | disposition home or self-care (01) ==
PROVIDERS: PCP Internal Medicine; Referring Provider Internal Medicine Cardiovascular Disease; Visit Provider Internal Medicine Cardiovascular Disease
DX: I25.5 Ischemic cardiomyopathy (principal); I25.119 Atherosclerotic heart disease of native coronary artery with unspecified angina pectoris; F17.200 Nicotine dependence, unspecified, uncomplicated; E78.5 Hyperlipidemia, unspecified; I10 Essential (primary) hypertension; I34.0 Nonrheumatic mitral (valve) insufficiency
CPT/HCPCS: 36415; 80053; 80061

== ENCOUNTER 2023-09-22 13:45 | Emergency (ER) | payer MEDICARE, MEDICAID, SELFPAY ==
[2023-09-22 13:46] VITALS: BP 127/73; PULSE 87; RESP 16; TEMP 38.1; O2SAT 99; BMI 22.6
== END 2023-09-22 14:29 | disposition left against medical advice (07) ==
LOC: ED 14:40
PROVIDERS: PCP Internal Medicine
DX: Z53.21 Procedure and treatment not carried out due to patient leaving prior to being seen by health care provider (principal)

== ENCOUNTER 2023-11-28 12:41 | Emergency (ER) | payer MEDICARE, MEDICAID, SELFPAY ==
[2023-11-28 12:44] VITALS: BP 118/71; PULSE 73; RESP 14; TEMP 36.6; O2SAT 100; BMI 23.1
--- NOTE | 2023-11-28 12:47 | EX.ED.DYSGE1 ---
HPI History of Present Illness Chief Complaint: Lower Extremity Injury [facility] Medical History Abdominal pain in male Angina pectoris Aortic insufficiency Atherosclerotic heart disease of [place] coronary artery without angina pectoris BAHA cochlear implant bone infection Bipolar 2 disorder Blepharospasm COPD (chronic obstructive pulmonary disease) Coronary artery disease Depression Diarrhea Essential (primary) hypertension Facet syndrome, lumbar Hearing loss History of DVT (deep vein thrombosis) History of ST elevation myocardial infarction (STEMI) (02/14/19) HIV (human immunodeficiency virus infection) Hyperlipidemia Ischemic cardiomyopathy Mitral regurgitation Nicotine dependence Orofacial dyskinesia Pulmonary embolism Schizophrenia Home Medications albuterol sulfate 90 mcg/actuation aerosol inhaler 2 puff inhalation Q4H PRN shortness of breath or wheezing 05/12/23 [History Last Taken Unknown] bictegravir 50 mg-emtricitabine 200 mg-tenofovir alafenam 25 mg tablet (Biktarvy) 1 tab PO DAILY 05/12/23 [History Last Taken 06/17/23] gabapentin 800 mg tablet 800 mg PO TID 05/12/23 [History Last Taken 06/17/23] aripiprazole 15 mg tablet 15 mg PO DAILY 09/04/23 [History Last Taken Unknown] loperamide 2 mg capsule 2 mg PO DAILY 09/04/23 [History Last Taken Unknown] aspirin 81 mg capsule 81 mg PO DAILY #90 caps 11/10/23 [Rx Last Taken Unknown] atorvastatin 40 mg tablet 40 mg PO DAILY #90 tabs 11/10/23 [Rx Last Taken Unknown] clopidogrel 75 mg tablet 75 mg PO DAILY #90 tabs 11/10/23 [Rx Last Taken Unknown] lisinopril 10 mg tablet 10 mg PO DAILY #90 tabs 11/10/23 [Rx Last Taken Unknown] metoprolol succinate 25 mg tablet,extended release 24 hr 25 mg PO DAILY #90 tabs 11/10/23 [Rx Last Taken Unknown] nitroglycerin 0.4 mg sublingual tablet (Nitrostat) 0.4 mg sublingual Q5M PRN chest pain #25 tabs 11/10/23 [Rx Last Taken Unknown] Allergy/AdvReac Type Severity Reaction Status Date / Time amitriptyline Allergy Swelling Verified 11/28/23 12:43 trazodone Allergy Swelling Verified 11/28/23 12:43 quetiapine fumarate AdvReac ERECTION Verified 11/28/23 12:43 [From Seroquel] THAT LASTS LONGER THAN 4 HOURS Family History Mother Asthma Diabetes Hypertension CVA (cerebral vascular accident) COPD (chronic obstructive pulmonary disease) Hyperlipidemia Grandmother Hypertension Myocardial infarction Grandfather Myocardial infarction Surgical History H/O colonoscopy H/O eye surgery H/O toe surgery History of coronary artery stent placement (02/14/19) Hx of cardiac catheterization (~06/17/23) Social History Smoking Status: Current every day smoker tobacco type: cigarettes alcohol intake: never caffeine: Yes Type: carbonated beverages Number of servings: 4, coffee Number of servings: 3 and tea EXAM Physical Exam Const Vital Signs: 11/28/23 12:44 Temperature 98 F Temperature Source Temporal Pulse Rate 73 Respiratory Rate 14 Blood Pressure 118/71 Blood Pressure Mean 86 Pulse Ox 100 Oxygen Delivery Method Room Air MDM MDM MDM Narrative Medical decision making narrative: HISTORY OF PRESENT ILLNESS: 58-year-old male presents with concern for DVT. States he woke up this morning and noted numbness and tingling in his right leg. Notes history of bilateral neuropathy. Denies any falls or recent trauma. Notes pain in his posterior calf. Notes history of DVT and family history of DVT. Patient denies active cancer, being bedridden for greater than 3 days, denies unilateral leg swelling, denies any varicose veins, denies tenderness along deep venous system. Denies major surgery within 12 weeks, recent paralysis. REVIEW OF SYSTEMS: Pertinent positives: Calf pain, numbness tingling Pertinent negatives: Loss of movement, loss sensation, trauma PHYSICAL EXAM: Nursing triage notes reviewed, Vital signs reviewed Constitutional: please see mdm HENT: MMM Eyes: Pupils equal round and reactive to light, Extraocular muscles intact Neck: No stridor, no JVD, full neck ROM Lungs: Clear to auscultation, No wheezing or rales. No increased work of breathing, no conversational dyspnea, no accessory muscle use, no nasal flaring. No respiratory distress noted Heart: Regular rate and rhythm, No murmurs, No rubs and No gallops, 2+ distal pulses (radial, femoral, posterior tibial) in all extremities Abdomen: Soft, there is no tenderness, rigidity, rebound or guarding, no obvious peritoneal signs, no palpable pulsatile abdominal masses, no auscultated abdominal bruit : No CVAT Extremities: No edema, compartments are soft, intact quadrant tendon complex, no obvious deformities no obvious tenderness to palpation or joint effusions noted Neuro: Intact sensation L1-S1 dermatomal distributions. Intact 5/5 strength in hip flexion (T12-L3). Knee extension (L2-L4). Ankle dorsiflexion (L4-L5). Ankle plantar flexion (S1). Great toe extension (L5). 2+ patellar and Achilles DTRs. Skin: No rash or lesions noted, good color, good cap refill MEDICAL DECISION MAKING: Chief Complaint: Leg injury External records reviewed: No recent Ngo imaging of the leg Factors affecting care: Schizophrenia, HIV, hypertension, hyperlipidemia, bipolar, hypertension, CAD Social determinants of health: History mental health disorder History obtained from others: Sisters Consults: none MDM Narrative: Patient was hemodynamically stable, afebrile, nontoxic-appearing. Right lower extremity is neurovascularly intact. I considered the following differential diagnosis: Fracture, dislocation, septic arthritis, compartment syndrome, musculoskeletal etiology, DVT ALL IMAGES (IF OBTAINED) HAVE BEEN PERSONALLY REVIEWED AND INTERPRETED BY MYSELF. Duplex ultrasound was negative for acute DVT. The synthesis of the patient's history, physical exam and images suggest no life-threatening etiology specifically no signs of compartment syndrome, fracture dislocation, arterial occlusion, septic arthritis, DVT. The etiology the patient's presentation is unclear likely secondary to a musculoskeletal etiology or acute on chronic neuropathy. Patient was given strict return precautions and follow-up instructions. Patient left from the ED prior to results of testing being delivered follow-up precautions are shared decision-making been discussed. Total critical care time today provided was at least 0 minutes. This excludes separately billable procedures. Critical care time (if documented) is secondary to the patient having high probability of clinically significant/life threatening deterioration in the patient's condition which required my urgent intervention. Impression: 1. Leg pain 2. Paresthesia Dispo: Discharge home This note was generated with [employer] dictation software. It may contain incorrect words, spelling, and punctuation that were not noted in review of the chart prior to signing. Radiography Diagnostic Testing: Clinical Impression(s) from Imaging Studies Venous Doppler Study 11/28/23 12:58 Interpretation Summary There is no evidence of right lower extremity deep vein thrombosis. Right great saphenous vein appears patent and compressible segmentally. Normal flow patterns left common femoral vein Ordering Physician: Nadeem Galvan Referring Physician: Lindsey Cisneros Performed By: Maris Arteaga RDCS, RVT Discharge Plan Triage Chief Complaint: Lower Extremity Injury ED Provider: Nadeem Galvan Dx/Rx/DC Orders Clinical Impression: Paresthesia Prescriptions: No Action gabapentin 800 mg tablet 800 mg PO TID Patient Comments: TAKE 1 TABLET BY MOUTH FOUR TIMES A DAY Biktarvy 50-200-25 mg tablet 1 tab PO DAILY Patient Comments: TAKE 1 TABLET BY MOUTH EVERY DAY albuterol sulfate 90 mcg/actuation HFA aerosol inhaler 2 puff inhalation Q4H PRN (Reason: shortness of breath or wheezing) Patient Comments: TAKE 2 PUFFS BY MOUTH EVERY 4 HOURS NEEDED aripiprazole 15 mg tablet 15 mg PO DAILY Patient Comments: TAKE 1 TABLET BY MOUTH EVERY DAY loperamide 2 mg capsule 2 mg PO DAILY aspirin 81 mg capsule 81 mg PO DAILY Qty: 90 3RF atorvastatin 40 mg tablet 40 mg PO DAILY Qty: 90 3RF clopidogrel 75 mg tablet 75 mg PO DAILY Qty: 90 3RF lisinopril 10 mg tablet 10 mg PO DAILY Qty: 90 3RF metoprolol succinate 25 mg tablet extended release 24 hr 25 mg PO DAILY Qty: 90 3RF nitroglycerin [Nitrostat] 0.4 mg tablet, sublingual 0.4 mg sublingual Q5M PRN (Reason: chest pain) Qty: 25 3RF Rx Instructions: do not exceed 3 doses per episode Primary Care Provider: Lindsey Cisneros Referrals: Lindsey Cisneros MD [Primary Care Provider] - Activity Restrictions/Additional Instructions: Thank you for trusting us with your care today! Please take Tylenol (2 pills, 650 mg), ibuprofen (2 pills, 400 mg) every 6 hours as needed for pain and fever control. Please return to the emergency department if your symptoms change or worsen. Please follow with your primary care physician for further outpatient evaluation and management. Disposition Disposition: Home, Self Care Discharge Date/Time: 11/28/23 13:44
--- NOTE | 2023-11-28 12:58 | VDLE_ITS ---
Reason For Study: RLE PAIN RIGHT LEFT GSV is normal. CFV is compressible, spontaneous, phasic, CFV is compressible, spontaneous, phasic, competent, and demonstrates normal competent and demonstrates normal augmentation. augmentation. FV is compressible, spontaneous, phasic, competent and demonstrates normal augmentation. POP V is compressible, spontaneous, phasic, competent and demonstrates normal augmentation. T/P Trunk is compressible. PTV is compressible. RT PerV is compressible. Procedure This is a venous duplex using B-mode, color flow and spectral Doppler. A preliminary report was called and/or faxed to Dr. Galvan @ 13:35 pm. VL/Venous Duplex US, Unilateral Interpretation Summary There is no evidence of right lower extremity deep vein thrombosis. Right great saphenous vein appears patent and compressible segmentally. Normal flow patterns left common f emoral vein Ordering Physician: Nadeem Galvan Referring Physician: Lindsey Cisneros Performed By: Maris Arteaga, DENIS, RVT
== END 2023-11-28 13:44 | disposition home or self-care (01) ==
PROVIDERS: Emergency Provider Emergency Medicine; PCP Internal Medicine; Visit Provider Emergency Medicine
DX: R20.2 Paresthesia of skin (principal); F20.9 Schizophrenia, unspecified; F31.9 Bipolar disorder, unspecified; J44.9 Chronic obstructive pulmonary disease, unspecified; B20 Human immunodeficiency virus [HIV] disease; M79.604 Pain in right leg; I10 Essential (primary) hypertension; I25.10 Atherosclerotic heart disease of native coronary artery without angina pectoris; E78.5 Hyperlipidemia, unspecified; F17.210 Nicotine dependence, cigarettes, uncomplicated
CPT/HCPCS: 93971; 99282

== ENCOUNTER → 2023-12-24 | Outpatient (CLI) | payer MEDICARE, MEDICAID, SELFPAY ==
[2023-12-24 16:05] LABS: Hematocrit 44.2 % (40-54); Hemoglobin 15.3 g/dL (13.0-16.5); Mean Corp Hgb Conc 34.6 g/dL (32-36); Mean Corpuscular Hgb 31.6 pg (27.0-32.0); Mean Corpuscular Volume 91.3 fL (80-94); Mean Platelet Vol. 11.1 fl (6.2-12.0); Platelet Count 219 K/mm3 (150-450); RBC Distribution Width CV 12.3 % (11.6-14.6); Red Blood Count 4.84 M/mm3 (4.6-6.2)
[2023-12-24 16:29] LABS: Anion Gap 4 (5-15); BUN 8 mg/dL (7-18); BUN/Creat Ratio 6.2 RATIO (10-20); Calcium,Total 9.4 mg/dL (8.5-10.1); Chloride 101 mmol/L (98-107); Creatinine, Serum 1.28 mg/dL (0.70-1.30); EST Glomerular Filtration Rate 61 mL/min (>60); Est Glom Filt Rate - Afr Amer 74 mL/min (>60); Glucose 105 mg/dL (74-106); Potassium 3.6 mmol/L (3.5-5.1); Sodium Level 136 mmol/L (136-145)
[2023-12-26 14:09] LABS: Absolute CD4 Helper 838 /uL (359-1519); Basophils (Absolute) 0.1 x10E3/uL (0.0-0.2); Eosinophils 1 % (Not Estab.); Eosinophils (Absolute) 0.1 x10E3/uL (0.0-0.4); Hematocrit 45.5 % (37.5-51.0); Hemoglobin 15.3 g/dL (13.0-17.7); Immature Granulocytes 1 % (Not Estab.); Immature Granulocytes Absolute 0 x10E3/uL (0.0-0.1); Lymphs 28 % (Not Estab.); Lymphs (Absolute) 2.2 x10E3/uL (0.7-3.1); MCH 31.4 pg (26.6-33.0); MCHC 33.6 g/dL (31.5-35.7); MCV 93 fL (79-97); Monocytes 6 % (Not Estab.); Monocytes (Absolute) 0.5 x10E3/uL (0.1-0.9); Neutrophils 63 % (Not Estab.); Neutrophils (Absolute) 4.9 x10E3/uL (1.4-7.0); Percent % CD4 Pos. Lymph. 38.1 % (30.8-58.5); Platelets 222 x10E3/uL (150-450); RBC Count 4.87 x10E6/uL (4.14-5.80); RDW 12.5 % (11.6-15.4); WBC Count 7.7 x10E3/uL (3.4-10.8)
[2023-12-27 03:07] LABS: HIV-1 RNA by PCR, Quant. < 20 copies/mL (.)
== END | disposition home or self-care (01) ==
LOC: LAB 15:27
PROVIDERS: PCP Internal Medicine; Referring Provider Internal Medicine Infectious Disease; Visit Provider Internal Medicine Infectious Disease
DX: B20 Human immunodeficiency virus [HIV] disease (principal)
CPT/HCPCS: 36415; 80048; 85027; 86361; 87536

== ENCOUNTER 2024-01-22 16:53 | Emergency (ER) | payer MEDICARE, MEDICAID, SELFPAY ==
[2024-01-22 16:54] VITALS: BP 118/70; PULSE 70; RESP 18; TEMP 36.6; O2SAT 98; BMI 21.7
--- NOTE | 2024-01-22 17:22 | EKG12_ITS ---
Test Reason : DIZZY Blood Pressure : / mmHG Vent. Rate : 055 BPM Atrial Rate : 055 BPM P-R Int : 132 ms QRS Dur : 080 ms QT Int : 444 ms P-R-T Axes : 007 041 029 degrees QTc Int : 424 ms Sinus bradycardia Otherwise normal ECG Confirmed by Khalif Ovalle ([id number]), advertising editor SHERRILL VALENZUELA ([id number]) on 01/26/2024 6:59:44 AM Referred By: Confirmed By:Khalif Ovalle
--- NOTE | 2024-01-22 17:25 | EX.ED.DYSGE1 ---
HPI History of Present Illness Chief Complaint: Dizziness Informant: patient Onset/Context/Timing Onset: Days Context: Gradual Onset Timing: Waxes and wanes Narrative Narrative: Patient presents secondary to episodes of dizziness and near syncope. Symptoms been ongoing for the past 4 days or so. He denies chest pain or palpitations. He states he will feel lightheaded and dizzy and weak all over. He was recently started on Ingrezza and Prozac, but was told to stop these as they were making his anxiety worse. He had only been on the medications 7 to 10 days total. His metoprolol was also recently cut in half due to concerns for low blood pressure. [facility] Medical History Nicotine dependence Coronary artery disease Angina pectoris Mitral regurgitation Aortic insufficiency Schizophrenia Pulmonary embolism Orofacial dyskinesia Hearing loss History of DVT (deep vein thrombosis) Blepharospasm Bipolar 2 disorder Facet syndrome, lumbar Essential (primary) hypertension Hyperlipidemia History of ST elevation myocardial infarction (STEMI) (02/14/19) COPD (chronic obstructive pulmonary disease) Atherosclerotic heart disease of [place] coronary artery without angina pectoris Ischemic cardiomyopathy BAHA cochlear implant bone infection HIV (human immunodeficiency virus infection) Depression Diarrhea Abdominal pain in male Home Medications ?Medication ?Instructions ?Recorded ?Last Taken ?Type albuterol sulfate 90 mcg/actuation 2 puff inhalation Q4H PRN 05/12/23 Unknown History aerosol inhaler shortness of breath or wheezing bictegravir 50 mg-emtricitabine 1 tab PO DAILY 05/12/23 06/17/23 History 200 mg-tenofovir alafenam 25 mg tablet (Biktarvy) gabapentin 800 mg tablet 800 mg PO TID 05/12/23 06/17/23 History aripiprazole 15 mg tablet 15 mg PO DAILY 09/04/23 Unknown History loperamide 2 mg capsule 2 mg PO DAILY 09/04/23 Unknown History aspirin 81 mg capsule 81 mg PO DAILY #90 caps 11/10/23 Unknown Rx atorvastatin 40 mg tablet 40 mg PO DAILY #90 tabs 11/10/23 Unknown Rx clopidogrel 75 mg tablet 75 mg PO DAILY #90 tabs 11/10/23 Unknown Rx lisinopril 10 mg tablet 10 mg PO DAILY #90 tabs 11/10/23 Unknown Rx metoprolol succinate 25 mg 25 mg PO DAILY #90 tabs 11/10/23 Unknown Rx tablet,extended release 24 hr nitroglycerin 0.4 mg sublingual 0.4 mg sublingual Q5M PRN chest 11/10/23 Unknown Rx tablet (Nitrostat) pain #25 tabs potassium chloride 20 mEq 20 meq PO BID #6 tabs 01/22/24 Unknown Rx tablet,extended release Allergy/AdvReac Type Severity Reaction Status Date / Time amitriptyline Allergy Swelling Verified 01/22/24 16:54 trazodone Allergy Swelling Verified 01/22/24 16:54 quetiapine fumarate (From AdvReac ERECTION Verified 01/22/24 16:54 Seroquel) THAT LASTS LONGER THAN 4 HOURS Family History Mother Asthma Diabetes Hypertension CVA (cerebral vascular accident) COPD (chronic obstructive pulmonary disease) Hyperlipidemia Grandmother Hypertension Myocardial infarction Grandfather Myocardial infarction Surgical History Hx of cardiac catheterization (~06/17/23) History of coronary artery stent placement (02/14/19) H/O colonoscopy H/O toe surgery H/O eye surgery Social History Smoking Status: Current every day smoker tobacco type: cigarettes alcohol intake: never caffeine: Yes Type: carbonated beverages Number of servings: 4, coffee Number of servings: 3 and tea ROS ROS ED Constitutional Constitutional ED: Denies chills or fever(s) Eyes Eyes: Denies change in vision ENT ENT ED: Denies rhinorrhea or sore throat Cardiovascular Cardiovascular: Denies chest pain, palpitations or racing heartbeat Respiratory/Chest Respiratory/Chest: Denies cough or dyspnea Gastrointestinal Gastrointestinal: Reports diarrhea and other Details: Decreased p.o. intake secondary to not feeling hungry. ; Denies abdominal pain, nausea or vomiting Genitourinary Genitourinary ED: Denies difficulty urinating or dysuria Musculoskeletal Musculoskeletal: Denies back pain or extremity pain Integumentary Denies Abrasions or rash Neurologic Neurologic: Reports weakness; Denies headache(s) Psychiatric Psychiatric: Denies anxiety or depression Allergic/Immunologic Allergic/Immunologic ED: Denies lip swelling or urticaria EXAM Physical Exam Const Vital Signs: 01/22/24 16:54 01/22/24 17:06 01/22/24 19:05 Temperature 98 F Temperature Source Temporal Pulse Rate 70 61 Respiratory Rate 18 18 Respiratory Pattern Normal Blood Pressure 118/70 119/71 Blood Pressure Mean 86 87 Pulse Ox 98 Oxygen Delivery Method Room Air Room Air Positive well nourished and well developed General Appearance ED: well developed HEENT Reports moist mucous membranes Eyes EOMs intact bilaterally Chest Wall inspection of chest normal and palpation of chest normal Resp normal respiratory effort and clear to auscultation bilaterally Cardio regular rate and regular rhythm GI GI Narrative: Abdomen soft with mild upper abdominal tenderness to palpation. No guarding or rebound. Active bowel sounds noted throughout. Extremity normal to inspection Neuro oriented x3 and no sensory deficits noted Neuro Narrative: No focal neurologic deficit. Motor Exam: strength 5/5 throughout Psych mental status grossly normal Skin no rashes or lesions noted MDM MDM MDM Narrative Medical decision making narrative: Patient placed on library monitor. EKG obtained to evaluate for cardiac arrhythmia/ischemia. IV line established. Labwork obtained to evaluate for leukocytosis, anemia, and electrolyte derangement. Patient given IV fluids. History & Record Review Discussion w/independent historian: Patient Lab Data Attestation: I reviewed the patient's lab results. Labs: Laboratory Results - last 24 hr 01/22/24 01/22/24 17:30 17:45 WBC 9.5 RBC 5.04 Hgb 15.8 Hct 44.8 MCV 88.9 MCH 31.3 MCHC 35.3 RDW Std Deviation 40.2 RDW Coeff of [place] 12.4 Plt Count 164 MPV 12.1 H Immature Gran % (Auto) 0.300 Neut % (Auto) 72.0 H Lymph % (Auto) 18.4 L Tucker % (Auto) 8.3 Eos % (Auto) 0.6 Baso % (Auto) 0.4 Absolute Neuts (auto) 6.8 Absolute Lymphs (auto) 1.75 Nucleated RBC % 0 Sodium 134 L Potassium 3.0 L Chloride 99 Carbon Dioxide 27.0 Anion Gap 8 BUN 9 Creatinine 1.22 Estim Creat Clear Calc 54.09 Est GFR (MDRD) Af Amer 79 Est GFR (MDRD) Non-Af 65 BUN/Creatinine Ratio 7.4 L Glucose 101 Calcium 9.3 Total Bilirubin 1.10 H Direct Bilirubin 0.36 H AST 23 ALT 24 Alkaline Phosphatase 121 H Troponin I High Sens 10 Total Protein 7.1 Albumin 4.3 Globulin 2.8 Urine Color Yellow Urine Clarity Clear Urine pH 5.0 Ur Specific [place] 1.025 Urine Protein 30 H Urine Glucose (UA) Normal Urine Ketones Negative Urine Occult Blood 10 H Urine Nitrite Negative Urine Bilirubin Negative Urine Urobilinogen 4 H Ur Leukocyte Esterase 25 H Urine RBC 0 SEEN Urine WBC 0-5 SEEN Ur Squamous Epith Cells 0 SEEN Urine Bacteria 0 SEEN Urine Mucus 0 SEEN EKG Initial EKG: Attestation: I personally reviewed and interpreted this EKG as follows: Interpretation: Sinus Bradycardia (Sinus bradycardia 55 bpm. No acute ischemia.) Treatment and Re-Evaluation :: CBC was normal white count 9.5 with a hemoglobin of 15.8. 72% neutrophils noted. Chemistry studies significant for a sodium of 134 and a potassium of 3.0. He is given oral potassium replacement. BUN is 9 and creatinine is 1.22. Chemistry studies reveal a total bilirubin of 1.1 and a direct bilirubin of 0.36. Troponin is normal at 10. Urinalysis reveals no evidence of infection. No ketones are noted. On repeat evaluation patient reports feeling much improved. He was able to get up and ambulate to the restroom without difficulty. He has not had any dizziness. Systolic blood pressures in the 110s. He is comfortable with discharge home at this time. I will write him for 3 additional days of potassium replacement. Return instructions provided. Discharge Plan Triage Chief Complaint: Dizziness ED Provider: Talia Murray Dx/Rx/DC Orders Clinical Impression: Weakness, Hypokalemia Instructions: ED Dizziness, Uncertain Cause, ED Hypokalemia Prescriptions: New potassium chloride 20 mEq tablet extended release 20 meq PO BID Qty: 6 0RF No Action gabapentin 800 mg tablet 800 mg PO TID Patient Comments: TAKE 1 TABLET BY MOUTH FOUR TIMES A DAY Biktarvy 50-200-25 mg tablet 1 tab PO DAILY Patient Comments: TAKE 1 TABLET BY MOUTH EVERY DAY albuterol sulfate 90 mcg/actuation HFA aerosol inhaler 2 puff inhalation Q4H PRN (Reason: shortness of breath or wheezing) Patient Comments: TAKE 2 PUFFS BY MOUTH EVERY 4 HOURS NEEDED aripiprazole 15 mg tablet 15 mg PO DAILY Patient Comments: TAKE 1 TABLET BY MOUTH EVERY DAY loperamide 2 mg capsule 2 mg PO DAILY aspirin 81 mg capsule 81 mg PO DAILY Qty: 90 3RF atorvastatin 40 mg tablet 40 mg PO DAILY Qty: 90 3RF clopidogrel 75 mg tablet 75 mg PO DAILY Qty: 90 3RF lisinopril 10 mg tablet 10 mg PO DAILY Qty: 90 3RF metoprolol succinate 25 mg tablet extended release 24 hr 25 mg PO DAILY Qty: 90 3RF nitroglycerin [Nitrostat] 0.4 mg tablet, sublingual 0.4 mg sublingual Q5M PRN (Reason: chest pain) Qty: 25 3RF Rx Instructions: do not exceed 3 doses per episode Primary Care Provider: Lindsey Cisneros Referrals: Lindsey Cisneros MD [Primary Care Provider] - 1 Week Print Language: Welsh Disposition Disposition: Home, Self Care
[2024-01-22] MEDS: 0.9% Normal Saline (1000mL) 1,000 ML 1000 ML IV (17:42)
[2024-01-22 17:43] LABS: Absolute Lymphocyte Count 1.75 X10^3/uL (0.83-4.51); Absolute Neutrophil Count 6.8 X10^3/uL (2.0-7.7); Basophil# 0.04 X10^3/uL; Basophil% 0.4 % (0-1); Eosinophil# 0.06 X10^3/uL; Eosinophils% 0.6 % (0-5); Hematocrit 44.8 % (40-54); Hemoglobin 15.8 g/dL (13.0-16.5); Lymphocyte # 1.75 X10^3/ul (0.83-4.51); Lymphocyte % 18.4 % (19-41); Mean Corp Hgb Conc 35.3 g/dL (32-36); Mean Corpuscular Hgb 31.3 pg (27.0-32.0); Mean Corpuscular Volume 88.9 fL (80-94); Mean Platelet Vol. 12.1 fl (6.2-12.0); Monocyte# 0.79 X10^3/uL; Monocyte% 8.3 % (0-10); NRBC Flagged by Analyzer 0 % (0-5); Neutrophil # 6.82 X10^3/uL (2.7-7.7); Platelet Count 164 K/mm3 (150-450); RBC Distribution Width CV 12.4 % (11.6-14.6); RBC Distribution Width SD 40.2 fl (35.1-43.9); Red Blood Count 5.04 M/mm3 (4.6-6.2); White Blood Count 9.5 K/mm3 (4.4-11.0)
[2024-01-22 17:57] LABS: Bacteria 0 SEEN /hpf (None Seen); Mucous, Urine 0 SEEN /hpf (<or=2+); Red Blood Cells-Urine 0 SEEN /hpf (0-5); Squamous Epithelial Cells - UA 0 SEEN /hpf (0-5)
[2024-01-22 18:03] LABS: AST(SGOT) 23 U/L (15-37); Alanine Aminotransfer ALT/SGPT 24 U/L (16-61); Albumin, Serum 4.3 g/dL (3.2-5.0); Alkaline Phosphatase 121 U/L (45-117); Anion Gap 8 (5-15); BUN 9 mg/dL (7-18); BUN/Creat Ratio 7.4 RATIO (10-20); Bilirubin, Direct 0.36 mg/dL (0.00-0.30); Calcium,Total 9.3 mg/dL (8.5-10.1); Chloride 99 mmol/L (98-107); Creatinine, Serum 1.22 mg/dL (0.70-1.30); EST Glomerular Filtration Rate 65 mL/min (>60); Est Glom Filt Rate - Afr Amer 79 mL/min (>60); Estimated Creatinine Clearance 54.09 ml/min; Globulin 2.8 g/dL (2.2-4.2); Glucose 101 mg/dL (74-106); Protein, Total 7.1 g/dL (6.4-8.2); Sodium Level 134 mmol/L (136-145); Troponin-I HS 10 pg/mL (3.0-78.0)
[2024-01-22 18:21] LABS: Color, Urine Yellow (Yellow); Glucose, Dipstick Normal (Normal); Ketone-Dipstick Negative (Negative); Leukocyte Esterase-Dipstick 25 /ul (Negative); Nitrite-Dipstick Negative (Negative); Occult Blood-Urine 10 /ul (Negative); Protein-Dipstick 30 mg/dl (Negative); Specific Gravity, Urine 1.025 (1.002-1.030); Urine Bilirubin Dipstick Negative (Negative); Urine Clarity Clear (Clear); Urine Urobilinogen 4 mg/dl (Normal)
[2024-01-22] MEDS: Potassium Chloride Oral Tablet 20 MEQ 40 MEQ PO (18:35)
[2024-01-22 18:41] LABS: White Blood Cells 0-5 SEEN /hpf (0-5)
[2024-01-22 19:05] VITALS: BP 119/71; PULSE 61; RESP 18
--- NOTE | 2024-01-22 19:34 | ED.RN ---
Pt is calling out and asking frequently what's going on? He states he's been waiting here for 2 hours and the last 20 minutes he's been told the MD would be in to see him. This RN provided education on the process and that the MD will be in as that's the next step in the process but we don't know how long she will be. Pt states he wants his iv out and just go home. RN tells pt that he can if he wants but md will not be able to talk to him about his results. Pt decides to stay.
== END 2024-01-22 19:53 | disposition home or self-care (01) ==
PROVIDERS: Emergency Provider Emergency Medicine; PCP Internal Medicine; Visit Provider Emergency Medicine
DX: R53.1 Weakness (principal); J44.9 Chronic obstructive pulmonary disease, unspecified; E87.6 Hypokalemia; R42 Dizziness and giddiness; R55 Syncope and collapse; Z79.899 Other long term (current) drug therapy; I25.10 Atherosclerotic heart disease of native coronary artery without angina pectoris; I10 Essential (primary) hypertension; F17.210 Nicotine dependence, cigarettes, uncomplicated
CPT/HCPCS: 80048; 80076; 81001; 84484; 85025; 93005; 96360; 99284; J7030; A4216

== ENCOUNTER 2024-12-14 14:08 | Emergency (ER) | payer MEDICARE, MEDICAID, SELFPAY ==
[2024-12-14 14:09] VITALS: BP 126/77; PULSE 87; RESP 20; TEMP 36.2; O2SAT 98; BMI 20.4
[2024-12-14 14:51] LABS: Absolute Lymphocyte Count 1.72 X10^3/uL (0.83-4.51); Absolute Neutrophil Count 3.6 X10^3/uL (2.0-7.7); Basophil# 0.06 X10^3/uL; Eosinophil# 0.06 X10^3/uL; Hematocrit 42.9 % (40-54); Hemoglobin 14.9 g/dL (13.0-16.5); Lymphocyte # 1.72 X10^3/ul (0.83-4.51); Lymphocyte % 28.9 % (19-41); Mean Corp Hgb Conc 34.7 g/dL (32-36); Mean Corpuscular Hgb 30.8 pg (27.0-32.0); Mean Corpuscular Volume 88.6 fL (80-94); Mean Platelet Vol. 12.3 fl (6.2-12.0); Monocyte# 0.53 X10^3/uL; Monocyte% 8.9 % (0-10); NRBC Flagged by Analyzer 0 % (0-5); Neutrophil # 3.58 X10^3/uL (2.7-7.7); Platelet Count 178 K/mm3 (150-450); RBC Distribution Width CV 12.5 % (11.6-14.6); Red Blood Count 4.84 M/mm3 (4.6-6.2)
--- NOTE | 2024-12-14 15:01 | ED.RN ---
PT STATED HE WAS GOING TO WAIT OUTSIDE FOR HIS ROOM. THIS RN DISCUSSED WITH THIS PATIENT THAT HE IS NOT ALLOWED TO LEAVE THE DEPARTMENT WITH AN IV IN HIS ARM. PT STATED, WATCH ME PT THEN WALKED TO WAITING ROOM STATING, I SHOULD'VE WENT TO [place]
--- NOTE | 2024-12-14 15:19 | ED.RN ---
PT COMES TO TRIAGE DESK STATING TAKE THIS IV OUT OF MY ARM RIGHT NOW. I AM LEAVING BECAUSE I HAVE BEEN HERE SINCE 1330 AND EVERYONE HERE IS JUST PISSING AROUND THIS RN ASKS PATIENT FOR LAST NAME AND PT STATES IT DOESN'T FUCKING MATTER THIS IS ALL BULLSHIT THIS RN REMOVED IV FROM PATIENT AND PATIENT EXITED DEPARTMENT.
--- NOTE | 2024-12-14 15:20 | ED.RN ---
PT ANGRY ABOUT WAIT. PT USING FOUL LANGUAGE AND YELLING AT TRIAGE NURSE. PT LEFT DEPARTMENT
[2024-12-14 15:27] LABS: Anion Gap 10 (5-15); BUN 14 mg/dL (4-19); BUN/Creat Ratio 11.3 RATIO (10-20); Calcium,Total 9.3 mg/dL (7.6-11.0); Carbon Dioxide 26.6 mmol/L (21.0-32.0); Chloride 103 mmol/L (98-108); Creatinine, Serum 1.23 mg/dL (0.70-1.20); EST Glomerular Filtration Rate 68 (>60); Glucose 121 mg/dL (70-99); Potassium 3.7 mmol/L (3.3-5.1); Sodium Level 139 mmol/L (133-145); Troponin T High Sensitivity < 6 ng/L (<=22)
--- NOTE | 2024-12-14 15:35 | RAD_ITS ---
EXAM: XR Chest, 2 Views CLINICAL INDICATION: CHEST PAIN TECHNIQUE: Frontal and lateral views of the chest. COMPARISON: No relevant prior studies available. FINDINGS: LUNGS AND PLEURAL SPACES: Unremarkable. No consolidation. No pneumothorax. HEART: Unremarkable. No cardiomegaly. MEDIASTINUM: Unremarkable. Normal mediastinal contour. BONES/JOINTS: Unremarkable. No acute fracture. RAD/Chest PA and Lateral IMPRESSION: No acute cardiopulmonary process. Reading Location: [facility] [place]
== END 2024-12-14 15:20 | disposition left against medical advice (07) ==
LOC: ED 15:23
PROVIDERS: PCP Internal Medicine
DX: Z53.21 Procedure and treatment not carried out due to patient leaving prior to being seen by health care provider (principal)
CPT/HCPCS: 71046; 80048; 84484; 85025; 93005